=== PATIENT | female | born 1930 | race Caucasian/White ===

== ENCOUNTER 2019-05-15 14:33 | Inpatient (IN) | payer MEDICARE ==
[2019-05-15] MEDS ORDERED: NAPROXEN 250 MG TAB PO PRN (23:00)
[2019-05-16] MEDS: methylPREDNISolone SOD SUCCI 40 MG/ML 1 ML VIAL IV SCH ×4 (00:22→17:46)
[2019-05-16] MEDS: PRAVASTATIN SODIUM 40 MG TAB PO SCH ×2 (00:22→20:58)
[2019-05-16] MEDS: SERTRALINE 50 MG TAB PO SCH ×3 (00:22→20:58)
[2019-05-16] MEDS: CLOPIDOGREL 75 MG TAB PO SCH (08:03)
[2019-05-16] MEDS: ISOSORBIDE MONONITRATE ER 60 MG TAB.ER.24H PO SCH (08:03)
[2019-05-16] MEDS: LOSARTAN 50 MG TAB PO SCH (08:03)
[2019-05-16] MEDS: PANTOPRAZOLE 40 MG TABLET PO SCH (08:03)
[2019-05-16] MEDS: FENOFIBRATE 160 MG TAB PO SCH (08:03)
[2019-05-16] MEDS: AZITHROMYCIN 500 MG in SODIUM CHLORIDE 0.9% 250 ML IVPB SCH (08:03)
[2019-05-16] MEDS: amLODIPine 5 MG TAB PO SCH (08:03)
[2019-05-16] MEDS: IPRATROPIUM-ALBUTEROL 3 ML NEB INHALATION SCH ×5 (09:16→20:04)
[2019-05-16 09:57] LABS: Basophils # (A) 0.2 k/uL (0-0.2); Basophils % (A) 2 %; Eosinophils # (A) 0.1 k/uL (0-0.7); Eosinophils % (A) 1 %; Lymphocytes # (A) 0.8 k/uL (1.0-4.8); Lymphocytes % (A) 6 %; MCHC 31.7 g/dL (31.0-37.0); MCV 88.2 fL (80.0-100.0); Mean Platelet Volume 8.4; Monocytes # (A) 0.6 k/uL (0-1.0); Monocytes % (A) 4 %; Neutrophils # (A) 11.5 k/uL (1.3-7.7); Neutrophils % (A) 87 %; Platelet Count 300 k/uL (150-450); RBC 4.65 m/uL (3.80-5.40); RDW 13.2 % (11.5-15.5); WBC 13.2 k/uL (3.8-10.6)
[2019-05-16 10:13] LABS: ALT 20 U/L (4-34); AST 25 U/L (14-36); African American GFR (CKD) >90 (>60 ml/min/1.73 sqM); Albumin 2.9 g/dL (3.5-5.0); Alkaline Phosphatase 41 U/L (38-126); Anion Gap 5 mmol/L; Blood Urea Nitrogen 18 mg/dL (7-17); Calcium 9.2 mg/dL (8.4-10.2); Carbon Dioxide 35 mmol/L (22-30); Chloride 95 mmol/L (98-107); Glucose 154 mg/dL (74-99); Non-African American GFR(CKD) 82 (>60 ml/min/1.73 sqM); Potassium 4.5 mmol/L (3.5-5.1); Sodium 135 mmol/L (137-145); Total Bilirubin 0.7 mg/dL (0.2-1.3); Total Protein 5.2 g/dL (6.3-8.2)
--- NOTE | 2019-05-16 11:05 | XR ---
EXAMINATION TYPE: XR chest 1V portable DATE OF EXAM: 05/16/2019 COMPARISON: 02/08/2000 HISTORY: Pneumonia TECHNIQUE: Single frontal view of the chest is obtained. FINDINGS: Bibasilar consolidation signal changes are noted. Arthropathy shoulders. Elevated hemidiap hragm right. No overt failure. No pneumothorax. Diffuse osteopenia noted. IMPRESSION: Bibasilar consolidation correlate for atelectasis
--- NOTE | 2019-05-16 11:29 | P.CNPUL ---
History of Present Illness Consult date: 05/16/19 Requesting physician: Franklin Velasco Reason for consult: dyspnea, abnormal CXR/CT (Basilar consolidation/atelectasis) Chief complaint: Nausea, vomiting, diarrhea, abdominal pain History of present illness: This is a very pleasant 89-year-old female patient who is somewhat hard of hearing. She resides at [facility] in [place]. She follows with Dr. Webber as her primary care provider. She has a history of coronary artery disease, pulmonary embolism, hypertension, CVA, anxiety, GERD, congestive heart failure, dual-chamber permanent pacemaker implantation, she was treated with IV diuretics, ceftriaxone and azithromycin. osteoarthritis, hyperlipidemia she had initially presented to [facility] on 05/09/2019 with complaints of nausea vomiting and abdominal pain. She was found to have oxygen saturations in the 80s and was placed on nasal cannula. She was kept for observation for acute hypoxic respiratory failure, gastroenteritis. She had then developed suspicion for pneumonia and a CT angiogram of the chest showed a right lower lobe consolidation. She was slow to progress and subsequently transferred here 05/15/2019 to the general medical floor for further evaluation and treatment. Pro-calcitonin 0.08 within normal limits at [facility] labs. Lactic acid 1.0. No leukocytosis. ProBNP 3940. The patient is seen today in consultation on the regular medical floor. She is somewhat hard of hearing but answering questions appropriately. She denies any worsening shortness of breath, cough or congestion. She states previously she had yellow/green productive sputum. She did have a fever while at [facility]. Currently afebrile. Maintaining O2 satu rations in the low 90s on 2 L/m per nasal cannula. White count 13.2. Hemoglobin 13.0. Sodium 135. Creatinine 0.60. Bicarb 35. She is continued on bronchodilators, ceftriaxone and azithromycin, IV Solu-Medrol. Today's x-ray shows bibasilar consolidation/atelectasis. There is elevated right he midiaphragm. Review of Systems REVIEW OF SYSTEMS: CONSTITUTIONAL: Denies any recent significant weight loss or weight gain. EYES: Denies change in vision. EARS, NOSE, MOUTH, THROAT: Denies headaches, positive for hoarseness and sore throat. CARDIOVASCULAR: Denies chest pain, palpitations or syncopal episodes. RESPIRATORY: Positive for shortness of breath, cough, congestion no hemoptysis. GASTROINTESTINAL: Denies change in appetite, positive for abdominal pain GENITOURINARY: Denies hematuria, denies infections. MUSKULOSKELETAL: Denies pain, denies swelling. INTEGUMENTARY: Denies rash, denies eczema. NEUROLOGICAL: Denies recent memory loss, no recent seizure activity. PSYCHIATRIC: Positive for anxiety, denies depression. HEMATOLOGIC/LYMPHATIC: Denies anemia, denies enlarged lymph nodes. Past Medical History Past Medical History: Coronary Artery Disease (CAD), Heart Failure, CVA/TIA, GERD/Reflux, Hyperlipidemia, Hypertension, Osteoarthritis (OA), Pneumonia Additional Past Medical History / Comment(s): anxiety; alleric rhinitiss; angina; atherosclerotic heart disease; hypoxia; weakness; hypkalemia; pace maker History of Any Multi-Drug Resistant Organisms: None Reported Past Surgical History: Hernia Repair, Hysterectomy, Pacemaker Additional Past Surgical History / Comment(s): colonoscope, hysterectomy, cataracts, hernia, cardiac pacemaker Past Anesthesia/Blood Transfusion Reactions: No Reported Reaction Type of Cardiac Device: Permanent Pacemaker Device Placement Date:: 2015 Smoking Status: Never smoker - Past Family History Mother Additional Family Medical History / Comment(s): heart problems Father Family Medical History: Diabetes Mellitus Additional Family Medical History / Comment(s): heart problems Medications and Allergies Home Medications Medication Instructions Recorded Confirmed Type Clopidogrel [Plavix] 75 mg PO DAILY 05/15/19 05/15/19 History Fenofibrate 160 mg PO DAILY 05/15/19 05/15/19 History Isosorbide Mononitrate ER [Imdur] 60 mg PO DAILY 05/15/19 05/15/19 History Losartan Potassium [Cozaar] 100 mg PO DAILY 05/15/19 05/15/19 History Naproxen 500 mg PO BID PRN 05/15/19 05/15/19 History Omeprazole [PriLOSEC] 20 mg PO AC-BRKFST 05/15/19 05/15/19 History Pravastatin Sodium [Pravachol] 40 mg PO HS 05/15/19 05/15/19 History Sertraline [Zoloft] 50 mg PO DAILY 05/15/19 05/15/19 History traZODone HCL 50 mg PO HS PRN 05/15/19 05/15/19 History Acetaminophen [Tylenol] 650 mg PO BID 05/16/19 05/16/19 History Cetirizine HCl [Zyrtec] 10 mg PO DAILY 05/16/19 05/16/19 History Naproxen 500 mg PO BID PRN 05/16/19 05/16/19 History Allergies Allergy/AdvReac Type Severity Reaction Status Date / Time levofloxacin [From Levaquin] Allergy Unknown Verified 05/15/19 21:14 shellfish derived [Shellfish] Allergy Unknown Verified 05/15/19 21:14 Physical Exam Vitals: Vital Signs Temp Pulse Pulse Resp BP Pulse Ox 05/16/19 09:29 88 05/16/19 09:17 88 05/16/19 05:10 97.3 F L 88 22 168/88 93 L 05/16/19 00:24 177/88 05/15/19 21:00 97.2 F L 89 20 93 L Intake and Output 05/15/19 05/16/19 05/16/19 22:59 06:59 14:59 Intake Total 100 100 Balance 100 100 Intake: Oral 100 100 Other: Voiding Method Bedpan Diaper # Voids 2 Weight 74.096 kg GENERAL EXAM: Alert, hard of hearing, pleasant 89-year-old female patient, on 2 L comfortable in no apparent distress. HEAD: Normocephalic. EYES: Normal reaction of pupils, equal size. NOSE: Clear with pink turbinates. THROAT: No erythema or exudates. NECK: No masses, no JVD. CHEST: No chest wall deformity. LUNGS: Equal air entry with few crackles in the posterior bases. CVS: S1 and S2 normal with no audible murmur, regular rhythm. ABDOMEN: No hepatosplenomegaly, normal bowel sounds, no guarding or rigidity. SPINE: No scoliosis or deformity SKIN: No rashes CENTRAL NERVOUS SYSTEM: No focal deficits, tone is normal in all 4 extremities. EXTREMITIES: There is no peripheral edema. No clubbing, no cyanosis. Peripheral pulses are intact. Results - Laboratory Findings CBC and BMP: 05/16/19 09:20 05/16/19 09:20 Abnormal lab findings: Abnormal Labs 05/16/19 05/16/19 09:20 09:20 WBC 13.2 H Neutrophils # 11.5 H Lymphocytes # 0.8 L Sodium 135 L Chloride 95 L Carbon Dioxide 35 H BUN 18 H Glucose 154 H Total Protein 5.2 L Albumin 2.9 L - Diagnostic Findings Chest x-ray: image reviewed (Bibasilar consolidation/atelectasis, right hemidiaphragm elevation) Assessment and Plan Assessment: 1 Abdominal discomfort secondary to nausea, vomiting and diarrhea 2 Acute hypoxic respiratory failure secondary to a right lower lobe pneumonia per CT results at [facility] 3 Bibasilar consolidation/atelectasis, elevated right hemidiaphragm 4 Hypertension 5 Chronic diastolic congestive heart failure 6 Atherosclerotic heart disease 7 Sick sinus syndrome, status post permanent pacemaker implantation 8 History of CVA 9 Hyperlipidemia 10 Osteoarthritis 11 Anxiety 12 Gastroesophageal reflux disease Plan: The patient was seen and evaluated by Dr. Harman. Chest x-ray and labs reviewed. Records from [facility] reviewed. She is currently on bronchodilators, IV Solu-Medrol, ceftriaxone and azithromycin. We will continue to monitor and make further recommendations based on her clinical status. I, the cosigning physician, performed a history & physical examination of the patient. Lungs sounds crackles in the posterior bases. Maintaining good O2 saturations in the 90s on 2 L/m per nasal cannula. I discussed the assessment and plan of care with my nurse practitioner, Mague Goyal. I attest to the above note as dictated by her. Time with Patient: Greater than 30
[2019-05-16] MEDS ORDERED: IPRATROPIUM-ALBUTEROL 3 ML NEB INHALATION PRN (15:16)
[2019-05-16] MEDS ORDERED: HYDROcodone/APAP 5-325MG 1 EACH TAB PO PRN (15:16)
[2019-05-16] MEDS: FUROSEMIDE 10 MG/ML 4 ML VIAL IV SCH (16:35)
[2019-05-16] MEDS: PIPERACILLIN-TAZOBACTAM 3.375 GM in SODIUM CHLORIDE 0.9% 100 ML IVPB SCH (16:35)
[2019-05-16 17:46] LABS: Glucose,Whole Blood 184 mg/dL (75-99)
[2019-05-16] MEDS: INSULIN ASPART (NovoLOG) 100 UNIT/ML VIAL SQ SCH ×2 (17:47→20:59)
--- NOTE | 2019-05-16 18:57 | HP ---
HISTORY AND PHYSICAL DATE OF SERVICE: 05/16/2019 CHIEF COMPLAINTS: Shortness of breath and cough and sputum and pneumonia. HISTORY OF PRESENT ILLNESS: This 89-year-old woman with a past medical history of multiple medical problems, including history of CAD, CHF, CVA, TIA, GERD, hypertension, hyperlipidemia, history of DJD, history of pneumonia, history of anxiety, history of hernia repair, hysterectomy, pacemaker, being followed by Dr. Webber in the outpatient setting, was having increasing shortness of breath and sputum for the last several days. Patient also had abdominal symptoms. The patient was apparently admitted to [facility] and was treated for pneumonia. She was noted to have abdominal symptoms as well. CT angio elsewhere showed right lower lobe consolidation and no evidence of pulmonary embolism. Because of lack of improvement, the patient was directly transferred to [facility] from [facility] and the patient was admitted for further evaluation and treatment. There is no history of any fever, rigor or chills. No history of headache, loss of consciousness, seizures at this time. No history of chest pain or palpitations. The chest x-ray done today showed bibasilar consolidations. PAST MEDICAL HISTORY: 1. History of CAD, CHF; ejection fraction unknown. 2. CVA, TIA. 3. GERD. 4. Hypertension. 5. Hyperlipidemia. 6. History of DJD. HOME MEDICATIONS: 1. Naprosyn 500 mg b.i.d. p.r.n. 2. Zyrtec 10 mg p.o. daily. 3. Tylenol 650 p.o. b.i.d. 4. Zoloft 50 mg p.o. daily. 5. Trazodone 50 mg at bedtime p.r.n. 6. Pravachol 40 mg at bedtime. 7. Prilosec 20 mg b.i.d. 8. Cozaar 100 mg p.o. daily. 9. Imdur 60 mg p.o. daily. 10.Fenofibrate 160 mg p.o. daily. 11.Plavix 75 mg p.o. daily. ALLERGIES: LEVAQUIN AND SHELLFISH. FAMILY HISTORY: History of diabetes mellitus and heart problems in the family. SOCIAL HISTORY: No history of smoking. No history of alcohol. REVIEW OF SYSTEMS: ENT: Diminished hearing. Diminished vision. CARDIOVASCULAR SYSTEM: As mentioned earlier. RESPIRATORY SYSTEM: As mentioned earlier. GI: No nausea, vomiting. : No dysuria or retention. NERVOUS SYSTEM: No numbness, weakness. ALLERGY/IMMUNOLOGY: No asthma, hayfever. MUSCULOSKELETAL: As mentioned earlier. HEMATOLOGY/ONCOLOGY: No history of anemia. ENDOCRINE: No history of diabetes, hypothyroidism. CONSTITUTIONAL: As mentioned earlier. DERMATOLOGY: Negative. RHEUMATOLOGY: Negative. PSYCHIATRY: As mentioned earlier. PHYSICAL EXAMINATION: Patient is alert, oriented x3. Pulse is 98, blood pressure 137/73, respirations 16, temperature 97.7, pulse ox 94% on 2 L. HEENT: Conjunctivae normal. Oral mucosa moist. NECK: No jugular venous distention. No carotid bruit. No lymph node enlargement. CARDIOVASCULAR SYSTEM: S1, S2 muffled. RESPIRATORY SYSTEM: Breath sounds diminished at the bases. Bilateral scattered rhonchi and crackles. Expiratory wheezing also present. ABDOMEN: Soft, non-tender. No mass palpable. LEGS: No edema. No swelling. NERVOUS SYSTEM: Higher functions as mentioned earlier. Moves all 4 limbs. No focal motor or sensory deficit. LYMPHATICS: No lymph node palpable in neck, axillae or groin. SKIN: No ulcer, rash, bleeding. JOINTS: No active deforming arthropathy. LABS: WBC 13.2, hemoglobin 13. Sodium 135, potassium 4.5, and albumin is 2.9. Influenza is negative. ASSESSMENT: 1. Bilateral pneumonia, possibly Gram-negative, with acute hypoxic respiratory failure with failure of inpatient treatment. 2. Rule out congestive heart failure. 3. Increased white count. 4. Hyponatremia. 5. History of coronary artery disease. 6. History of congestive heart failure; ejection fraction unknown. 7. History of cerebrovascular accident, transient ischemic attack. 8. Gastroesophageal reflux disease. 9. Hypertension. 10.Hyperlipidemia. 11.History of degenerative joint disease. 12.History of pneumonia. 13.History of anxiety. 14.Allergic rhinitis. 15.History of hypoxia. 16.History of hypokalemia. 17.History of pacemaker. 18.History of hernia repair. 19.History of hysterectomy. 20.History of colonoscopy. 21.NO CODE, NO CPR, NO VENT. RECOMMENDATIONS AND DISCUSSION: In this 89-year-old woman who presented with multiple complex medical issues, we will monitor the patient closely, continue the current medications, continue with symptomatic treatment. Will initiate broad-spectrum IV antibiotics. I would use IV Zosyn at this time. Follow the cultures. I would also recommend a small dose of diuretics. Check BNP and 2D echo. Complete cardiac workup. Dr. Harman has been consulted. Resume the home medications and bronchodilators, IV steroids. Monitor blood sugars closely. DVT prophylaxis. Prognosis guarded because of multiple complex medical issues. Further recommendations to follow. A copy of this dictation is being forwarded to Dr. Webber, who is the primary physician. MMODL / IJN: [id number] /
[2019-05-16] MEDS: BUDESONIDE 1 MG/2 ML NEBU INHALATION SCH (20:04)
[2019-05-16 20:28] LABS: Glucose,Whole Blood 185 mg/dL (75-99)
[2019-05-16] MEDS: HEPARIN SODIUM,PORCINE 5,000 UNIT/ML 1 ML VIAL SQ SCH (20:58)
[2019-05-17] MEDS: PIPERACILLIN-TAZOBACTAM 3.375 GM in SODIUM CHLORIDE 0.9% 100 ML IVPB SCH ×4 (00:19→23:21)
[2019-05-17] MEDS: methylPREDNISolone SOD SUCCI 40 MG/ML 1 ML VIAL IV SCH ×5 (00:21→23:21)
[2019-05-17] MEDS: ALPRAZolam 0.25 MG TAB PO PRN ×2 (00:23→23:29)
[2019-05-17 07:38] LABS: Glucose,Whole Blood 131 mg/dL (75-99)
[2019-05-17] MEDS: INSULIN ASPART (NovoLOG) 100 UNIT/ML VIAL SQ SCH ×4 (07:41→21:27)
[2019-05-17] MEDS: amLODIPine 5 MG TAB PO SCH (07:55)
[2019-05-17] MEDS: HEPARIN SODIUM,PORCINE 5,000 UNIT/ML 1 ML VIAL SQ SCH ×2 (07:55→21:27)
[2019-05-17] MEDS: LOSARTAN 50 MG TAB PO SCH (07:55)
[2019-05-17] MEDS: FUROSEMIDE 10 MG/ML 4 ML VIAL IV SCH (07:55)
[2019-05-17] MEDS: ISOSORBIDE MONONITRATE ER 60 MG TAB.ER.24H PO SCH (07:55)
[2019-05-17] MEDS: PANTOPRAZOLE 40 MG TABLET PO SCH (07:55)
[2019-05-17] MEDS: CLOPIDOGREL 75 MG TAB PO SCH (07:55)
[2019-05-17] MEDS: FENOFIBRATE 160 MG TAB PO SCH (07:55)
[2019-05-17] MEDS: AZITHROMYCIN 500 MG in SODIUM CHLORIDE 0.9% 250 ML IVPB SCH (07:56)
[2019-05-17 08:36] LABS: Appearance,Urine Clear (Clear); Bilirubin,Urine Negative (Negative); Blood,Urine Negative (Negative); Color,Urine Yellow; Glucose,Urine (UA) Negative (Negative); Ketones,Urine Negative (Negative); Leukocyte Esterase,Urine Negative (Negative); Nitrite,Urine Negative (Negative); PH, Urine 6.5 (5.0-8.0); Protein,Urine Negative (Negative); Specific Gravity,Urine 1.019 (1.001-1.035); Urobilinogen,Urine <2.0 mg/dL (<2.0)
[2019-05-17 08:40] LABS: African American GFR (CKD) >90 (>60 ml/min/1.73 sqM); Anion Gap 10 mmol/L; Blood Urea Nitrogen 27 mg/dL (7-17); Calcium 9.3 mg/dL (8.4-10.2); Carbon Dioxide 33 mmol/L (22-30); Chloride 91 mmol/L (98-107); Glucose 146 mg/dL (74-99); Non-African American GFR(CKD) 81 (>60 ml/min/1.73 sqM); Sodium 134 mmol/L (137-145)
[2019-05-17] MEDS: IPRATROPIUM-ALBUTEROL 3 ML NEB INHALATION SCH ×4 (08:53→20:24)
[2019-05-17] MEDS: BUDESONIDE 1 MG/2 ML NEBU INHALATION SCH ×2 (08:53→20:24)
[2019-05-17 09:09] LABS: Potassium 4.4 mmol/L (3.5-5.1)
[2019-05-17 09:17] LABS: Basophils # (A) 0.2 k/uL (0-0.2); Basophils % (A) 1 %; Eosinophils % (A) 0 %; HCT 45.9 % (34.0-46.0); Lymphocytes # (A) 1.6 k/uL (1.0-4.8); Lymphocytes % (A) 9 %; MCHC 32.7 g/dL (31.0-37.0); MCV 85.7 fL (80.0-100.0); Mean Platelet Volume 9.2; Monocytes # (A) 0.8 k/uL (0-1.0); Monocytes % (A) 5 %; Neutrophils # (A) 15.8 k/uL (1.3-7.7); Neutrophils % (A) 85 %; Platelet Count 257 k/uL (150-450); RBC 5.35 m/uL (3.80-5.40); WBC 18.7 k/uL (3.8-10.6)
[2019-05-17 12:08] LABS: Glucose,Whole Blood 161 mg/dL (75-99)
--- NOTE | 2019-05-17 12:36 | P.PN ---
Subjective Progress Note Date: 05/17/19 Principal diagnosis: Acute hypoxic respiratory failure secondary to right lower lobe pneumonia. This is a very pleasant 89-year-old female patient who is somewhat hard of hearing. She resides at [facility] in [place]. She follows with Dr. Webber as her primary care provider. She has a history of coronary artery disease, pulmonary embolism, hypertension, CVA, anxiety, GERD, congestive heart failure, dual-chamber permanent pacemaker implantation, she was treated with IV diuretics, ceftriaxone and azithromycin. osteoarthritis, hyperlipidemia she had initially presented to [facility] on 05/09/2019 with complaints of nausea vomiting and abdominal pain. She was found to have oxygen saturations in the 80s and was placed on nasal cannula. She was kept for observation for acute hypoxic respiratory failure, gastroenteritis. She had then developed suspicion for pneumonia and a CT angiogram of the chest showed a right lower lobe consolidation. She was slow to progress and subsequently transferred here 05/15/2019 to the general medical floor for further evaluation and treatment. Pro-calcitonin 0.08 within normal limits at [facility] labs. Lactic acid 1.0. No leukocytosis. ProBNP 3940. The patient is seen today in consultation on the regular medical floor. She is somewhat hard of hearing but answering questions appropriately. She denies any worsening shortness of breath, cough or congestion. She states previously she had yellow/green productive sputum. She did have a fever while at [facility]. Currently afebrile. Maintaining O2 s aturations in the low 90s on 2 L/m per nasal cannula. White count 13.2. Hemoglobin 13.0. Sodium 135. Creatinine 0.60. Bicarb 35. She is continued on bronchodilators, ceftriaxone and azithromycin, IV Solu-Medrol. Today's x-ray shows bibasilar consolidation/atelectasis. There is elevated right hemidiaphragm. The patient is seen today in 05/17/2019 in follow-up on the regular medical floor. She is currently up walking with assistance and physical therapy. She is awake and alert in no acute distress. She is breathing a bit easier today compared to yesterday. Still with some dyspnea on exertion. Maintaining good O2 saturations in the mid 90s on 2 L/m per nasal cannula. She is afebrile. Urine culture pending. White count 18.7. Hemoglobin 15.0. Sodium 134. Potassium 4.4. Bicarb 33. Creatinine 0.64. She is continued on Zosyn and azithromycin., Currently on IV Solu-Medrol bronchodilators and continued on IV diuretics. Chest x-ray shows bibasilar consolidation/atelectasis. Objective - Vital Signs Vital signs: Vital Signs Temp 97.5 F L 05/17/19 04:50 Pulse 99 05/17/19 12:09 Resp 20 05/17/19 04:50 BP 157/82 05/17/19 04:50 Pulse Ox 96 05/17/19 08:54 Intake & Output 05/16/19 05/17/19 05/17/19 18:59 06:59 18:59 Intake Total 300 Balance 300 Intake: Oral 300 Other: Voiding Method Bedpan Bedpan Bedside Commode Incontinent Incontinent Incontinent # Voids 2 2 # Bowel Movements 1 - Exam GENERAL EXAM: Alert, hard of hearing, pleasant 89-year-old female patient, on 2 L comfortable in no apparent distress. HEAD: Normocephalic. EYES: Normal reaction of pupils, equal size. NOSE: Clear with pink turbinates. THROAT: No erythema or exudates. NECK: No masses, no JVD. CHEST: No chest wall deformity. LUNGS: Equal air entry with few crackles in the posterior bases. CVS: S1 and S2 normal with no audible murmur, regular rhythm. ABDOMEN: No hepatosplenomegaly, normal bowel sounds, no guarding or rigidity. SPINE: No scoliosis or deformity SKIN: No rashes CENTRAL NERVOUS SYSTEM: No focal deficits, tone is normal in all 4 extremities. EXTREMITIES: There is no peripheral edema. No clubbing, no cyanosis. Peripheral pulses are intact. - Labs CBC & Chem 7: 05/17/19 07:24 05/17/19 07:24 Labs: Abnormal Lab Results - Last 24 Hours (Table) 05/16/19 05/16/19 05/17/19 Range/Units 17:44 20:15 07:24 WBC 18.7 H (3.8-10.6) k/uL Neutrophils # 15.8 H (1.3-7.7) k/uL Sodium (137-145) mmol/L Chloride (98-107) mmol/L Carbon Dioxide (22-30) mmol/L BUN (7-17) mg/dL Glucose (74-99) mg/dL POC Glucose (mg/dL) 184 H 185 H (75-99) mg/dL 05/17/19 05/17/19 05/17/19 Range/Units 07:24 07:34 12:07 WBC (3.8-10.6) k/uL Neutrophils # (1.3-7.7) k/uL Sodium 134 L (137-145) mmol/L Chloride 91 L (98-107) mmol/L Carbon Dioxide 33 H (22-30) mmol/L BUN 27 H (7-17) mg/dL Glucose 146 H (74-99) mg/dL POC Glucose (mg/dL) 131 H 161 H (75-99) mg/dL Microbiology - Last 24 Hours (Table) 05/17/19 07:23 Urine Culture - Preliminary Urine,Clean Catch Assessment and Plan Assessment: 1 Abdominal discomfort secondary to nausea, vomiting and diarrhea 2 Acute hypoxic respiratory failure secondary to a right lower lobe pneumonia per CT results at [facility] 3 Bibasilar consolidation/atelectasis, elevated right hemidiaphragm 4 Hypertension 5 Chronic diastolic congestive heart failure 6 Atherosclerotic heart disease 7 Sick sinus syndrome, status post permanent pacemaker implantation 8 History of CVA 9 Hyperlipidemia 10 Osteoarthritis 11 Anxiety 12 Gastroesophageal reflux disease Plan: The patient was seen and evaluated by Dr. Harman. Computed tomography scan from [facility] reviewed. Chest x-ray reviewed. We'll continue with the current treatment plan. She is currently on bronchodilators, IV Solu-Medrol, ceftriaxone and azithromycin. Increase her activity as tolerated. We will continue to monitor and make further recommendations based on her clinical status. I, the cosigning physician, performed a history & physical examination of the patient. Lungs sounds crackles in the posterior bases. Maintaining good O2 saturations in the 90s on 2 L/m per nasal cannula. I discussed the assessment and plan of care with my nurse practitioner, Mague Goyal. I attest to the above note as dictated by her.
--- NOTE | 2019-05-17 12:48 | ECHOF ---
Referral Reason:chf MEASUREMENTS -------- HEIGHT: 165.1 cm WEIGHT: 74.8 kg BP: RVIDd: 3.1 cm (< 3.3) IVSd: 1.4 cm (0.6 - 1.1) LVIDd: 3.6 cm (3.9 - 5.3) LVPWd: 1.6 cm (0.6 - 1.1) IVSs: 1.5 cm LVIDs: 2.9 cm LVPWs: 1.7 cm LA Diam: 3.7 cm (2.7 - 3.8) MV EXCURSION: 13.275 mm (> 18.000) MV EF SLOPE: 69 mm/s (70 - 150) EPSS: 0.3 cm MV E Mark: 0.70 m/s MV DecT: 216 ms MV A Mark: 0.96 m/s MV E/A Ratio: 0.73 AV maxP.14 mmHg AV meanP.44 mmHg FINDINGS -------- Paced rhythm. This was a techncally difficult study with suboptimal views, , Definity utilized for enhancement of i mages. The left ventricular size is normal. There is mild concentric left ventricular hypertrophy. Overa ll left ventricular systolic function is mildly impaired with, an EF between 45 - 50 %. Basal infer ior LV wall motion is hypokinetic. The right ventricle is normal in size. The left atrium is moderately dilated. The right atrial size is normal. xx ml of Lumason was utilized for enhancement of images. The aortic valve was not well visualized. There is moderate aortic stenosis present. Peak/mean gr adient across the Aortic Valve is 32.14mmHg / 16.44mmHg. Mild mitral annular calcification present. Mild mitral regurgitation is present. Mild tricuspid regurgitation present. Right ventricular systolic pressure is normal at < 35 mmHg. There is mild pulmonary hypertension. There is no pulmonic regurgitation present. The aortic root size is normal. Echo free space indicative of a pericardial fat pad. CONCLUSIONS -------- 1. Paced rhythm. 2. This was a techncally difficult study with suboptimal views, , Definity utilized for enhancement o f images. 3. The left ventricular size is normal. 4. There is mild concentric left ventricular hypertrophy. 5. Overall left ventricular systolic function is mildly impaired with, an EF between 45 - 50 %. 6. Basal inferior LV wall motion is hypokinetic. 7. The right ventricle is normal in size. 8. The left atrium is moderately dilated. 9. The right atrial size is normal. 10. xx ml of Lumason was utilized for enhancement of images. 11. The aortic valve was not well visualized. 12. There is moderate aortic stenosis present. 13. Peak/mean gradient across the Aortic Valve is 32.14mmHg / 16.44mmHg. 14. Mild mitral annular calcification present. 15. Mild mitral regurgitation is present. 16. Mild tricuspid regurgitation present. 17. Right ventricular systolic pressure is normal at < 35 mmHg. 18. There is mild pulmonary hypertension. 19. There is no pulmonic regurgitation present. 20. The aortic root size is normal. 21. Echo free space indicative of a pericardial fat pad. TURF GROWER: Debbie Brown RDCS
[2019-05-17 16:56] LABS: Glucose,Whole Blood 155 mg/dL (75-99)
[2019-05-17] MEDS: TRIMETHOBENZAMIDE 100 MG/ML 2 ML VIAL IM PRN (19:34)
[2019-05-17 20:35] LABS: Glucose,Whole Blood 141 mg/dL (75-99)
--- NOTE | 2019-05-17 20:39 | PN ---
PROGRESS NOTE DATE OF SERVICE: 05/17/2019 This 89-year-old woman who was admitted with bilateral pneumonia, possibly Gram- negative, with acute hypoxic respiratory failure is being closely monitored at this time. No chest pain, palpitations. The patient had failure of outpatient treatment. The patient was previously being treated at [facility] for quite some time. The patient also had abdominal symptoms, which are rather improving at this time. The chest x-ray which was done in [place], which was personally reviewed by me, showed possible bibasilar consolidation. Past medical history reviewed. REVIEW OF SYSTEMS: CARDIOVASCULAR SYSTEM: As mentioned earlier. RESPIRATORY SYSTEM: As mentioned earlier. GI: As mentioned earlier. : No dysuria or retention. NERVOUS SYSTEM: No numbness, weakness. CURRENT MEDICATIONS: Current medications reviewed and include: Tylenol p.r.n. [place] 5 mg q.6 p.r.n. DuoNeb q.i.d. and p.r.n. Xanax 0.25 t.i.d. Norvasc 5 mg p.o. daily. Zithromax 500 mg daily. Pulmicort 1 mg b.i.d. Plavix. Lofibra. Lasix. Heparin. NovoLog. Imdur. Cozaar. Solu-Medrol 40 IV q.6. Protonix. Zosyn 3.375 IV q.8. Zoloft. Desyrel. PHYSICAL EXAMINATION: Patient is alert, oriented x3. Pulse is 101, blood pressure 121/83, respirations 18, temperature 98.4, pulse ox 97% on 2 L. HEENT: Conjunctivae normal. NECK: No jugular venous distention. CARDIOVASCULAR SYSTEM: S1, S2 muffled. RESPIRATORY SYSTEM: Breath sounds diminished at the bases. Bilateral scattered rhonchi and crackles, especially in the bases. ABDOMEN: Soft, nontender. LEGS: No edema. No swelling. NERVOUS SYSTEM: No focal deficit. LABORATORY DATA: WBC 18.7, hemoglobin 15. Sodium 134. Accu-Cheks 131, 161. ASSESSMENT: 1. Bilateral pneumonia, possibly Gram-negative, right more than left, with acute hypoxic respiratory failure with failure of outpatient treatment. 2. Rule out congestive heart failure. 3. Increased white count. 4. Nausea, vomiting and diarrhea; possible acute gastroenteritis. 5. Hyponatremia. 6. History of coronary artery disease. 7. History of congestive heart failure; ejection fraction unknown. 8. History of cerebrovascular accident, transient ischemic attack. 9. Gastroesophageal reflux disease. 10.Hypertension. 11.Hyperlipidemia. 12.History of degenerative joint disease. 13.History of pneumonia. 14.History of anxiety. 15.History of allergic rhinitis. 16.History of hypoxemia. 17.History of hypokalemia. 18.History of pacemaker. 19.History of hernia repair. 20.History of hysterectomy. 21.History of colonoscopy. 22.NO CODE, NO CPR, NO VENT. RECOMMENDATIONS AND DISCUSSION: I recommend to continue current medications, continue with symptomatic treatment. Continue with broad-spectrum IV antibiotics. Continue with the bronchodilators. Continue with the rest of the medications. Otherwise, increase ambulation. PT/OT evaluation. Consider possible ECF rehab. Guarded prognosis because of multiple complex medical issues. Further recommendations to follow. Influenza is negative. MMODL / IJN: [id number] /
[2019-05-17] MEDS: PRAVASTATIN SODIUM 40 MG TAB PO SCH (21:27)
[2019-05-17] MEDS: SERTRALINE 50 MG TAB PO SCH (21:27)
[2019-05-17] MEDS: ACETAMINOPHEN TAB 500 MG TAB PO PRN (23:22)
[2019-05-18] MEDS: traZODone HCL 50 MG TAB PO PRN ×2 (02:48→21:04)
[2019-05-18] MEDS: ACETAMINOPHEN TAB 500 MG TAB PO PRN (05:24)
[2019-05-18] MEDS: TRIMETHOBENZAMIDE 100 MG/ML 2 ML VIAL IM PRN (05:28)
[2019-05-18] MEDS: methylPREDNISolone SOD SUCCI 40 MG/ML 1 ML VIAL IV SCH ×3 (05:28→17:33)
[2019-05-18] MEDS: IPRATROPIUM-ALBUTEROL 3 ML NEB INHALATION SCH ×4 (07:14→21:10)
[2019-05-18] MEDS: BUDESONIDE 1 MG/2 ML NEBU INHALATION SCH ×2 (07:14→21:10)
[2019-05-18 07:15] LABS: Glucose,Whole Blood 133 mg/dL (75-99)
[2019-05-18 09:34] LABS: Basophils # (A) 0.2 k/uL (0-0.2); Basophils % (A) 1 %; Eosinophils % (A) 0 %; HCT 44.5 % (34.0-46.0); Hypochromasia Slight; Lymphocytes # (A) 0.7 k/uL (1.0-4.8); Lymphocytes % (A) 4 %; MCH 28.1 pg (25.0-35.0); MCHC 31.5 g/dL (31.0-37.0); MCV 89.1 fL (80.0-100.0); Mean Platelet Volume 8.2; Monocytes # (A) 0.7 k/uL (0-1.0); Monocytes % (A) 4 %; Neutrophils # (A) 18.2 k/uL (1.3-7.7); Neutrophils % (A) 91 %; Platelet Count 219 k/uL (150-450); RDW 13.5 % (11.5-15.5); WBC 19.9 k/uL (3.8-10.6)
[2019-05-18 09:37] LABS: African American GFR (CKD) >90 (>60 ml/min/1.73 sqM); Anion Gap 6 mmol/L; Blood Urea Nitrogen 31 mg/dL (7-17); Calcium 8.6 mg/dL (8.4-10.2); Carbon Dioxide 34 mmol/L (22-30); Chloride 90 mmol/L (98-107); Glucose 143 mg/dL (74-99); Non-African American GFR(CKD) 83 (>60 ml/min/1.73 sqM); Potassium 3.9 mmol/L (3.5-5.1); Sodium 130 mmol/L (137-145)
[2019-05-18] MEDS: INSULIN ASPART (NovoLOG) 100 UNIT/ML VIAL SQ SCH ×4 (09:43→21:36)
[2019-05-18] MEDS: ISOSORBIDE MONONITRATE ER 60 MG TAB.ER.24H PO SCH (09:56)
[2019-05-18] MEDS: LOSARTAN 50 MG TAB PO SCH (09:56)
[2019-05-18] MEDS: PANTOPRAZOLE 40 MG TABLET PO SCH (09:56)
[2019-05-18] MEDS: HEPARIN SODIUM,PORCINE 5,000 UNIT/ML 1 ML VIAL SQ SCH ×2 (09:57→21:03)
[2019-05-18] MEDS: amLODIPine 5 MG TAB PO SCH (09:57)
[2019-05-18] MEDS: CLOPIDOGREL 75 MG TAB PO SCH (09:57)
[2019-05-18] MEDS: FENOFIBRATE 160 MG TAB PO SCH (09:57)
[2019-05-18] MEDS: PIPERACILLIN-TAZOBACTAM 3.375 GM in SODIUM CHLORIDE 0.9% 100 ML IVPB SCH ×2 (09:57→15:58)
[2019-05-18] MEDS: FUROSEMIDE 10 MG/ML 4 ML VIAL IV SCH (09:57)
[2019-05-18] MEDS ORDERED: diphenhydrAMINE 25 MG CAP PO PRN (10:02)
[2019-05-18] MEDS ORDERED: predniSONE 50 MG TAB PO PRN (10:03)
[2019-05-18] MEDS ORDERED: FAMOTIDINE 20 MG/2 ML VIAL IV PRN (10:20)
[2019-05-18 11:47] LABS: Glucose,Whole Blood 153 mg/dL (75-99)
--- NOTE | 2019-05-18 12:06 | P.PN ---
Subjective Progress Note Date: 05/18/19 This is a very pleasant 89-year-old female patient who is somewhat hard of hearing. She resides at [facility] in [place]. She follows with Dr. Webber as her primary care provider. She has a history of coronary artery disease, pulmonary embolism, hypertension, CVA, anxiety, GERD, congestive heart failure, dual-chamber permanent pacemaker implantation, she was treated with IV diuretics, ceftriaxone and azithromycin. osteoarthritis, hyperlipidemia she had initially presented to [facility] on 05/09/2019 with complaints of nausea vomiting and abdominal pain. She was found to have oxygen saturations in the 80s and was placed on nasal cannula. She was kept for observation for acute hypoxic respiratory failure, gastroenteritis. She had then developed suspicion for pneumonia and a CT angiogram of the chest showed a right lower lobe consolidation. She was slow to progress and subsequently transferred here 05/15/2019 to the general medical floor for further evaluation and treatment. Pro-calcitonin 0.08 within normal limits at [place] labs. Lactic acid 1.0. No leukocytosis. ProBNP 3940. The patient is seen today in consultation on the regular medical floor. She is somewhat hard of hearing but answering questions appropriately. She denies any worsening shortness of breath, cough or congestion. She states previously she had yellow/green productive sputum. She did have a fever while at [place]. Currently afebrile. Maintaining O2 saturations in the low 90s on 2 L/m per nasal cannula. White count 13.2. Hemoglobin 13.0. Sodium 135. Creatinine 0.60. Bicarb 35. She is continued on bronchodilators, ceftriaxone and azithromycin, IV Solu-Medrol. Today's x-ray shows bibasilar consolidation/atelectasis. There is elevated right hemidiaphragm. The patient is seen today in 05/17/2019 in follow-up on the regular medical floor. She is currently up walking with assistance and physical therapy. She is awake and alert in no acute distress. She is breathing a bit easier today compared to yesterday. Still with some dyspnea on exertion. Maintaining good O2 saturations in the mid 90s on 2 L/m per nasal cannula. She is afebrile. Urine culture pending. White count 18.7. Hemoglobin 15.0. Sodium 134. Potassium 4.4. Bicarb 33. Creatinine 0.64. She is continued on Zosyn and azithromycin., Currently on IV Solu-Medrol bronchodilators and continued on IV diuretics. Chest x-ray shows bibasilar consolidation/atelectasis. On 05/18/2019 she has no respiratory difficulties. She is complaining of some vague diffuse abdominal pain and it's been going on for quite some time since admission initiated to [facility] and later on to [place]. She had some limited right lower lobe infiltration and elevation of right hemidiaphragm. She is on room air oxygen. He is on antibiotics with IV Zosyn and Zithromax.. She is going to have a CAT scan of the abdomen today. LFTs have been within normal including AST, ALT, alkaline phosphatase . Normal bilirubin. She did have some limited diarrhea earlier none for now. Objective - Vital Signs Vital signs: Vital Signs Temp 98.0 F 05/18/19 05:36 Pulse 96 05/18/19 11:16 Resp 22 05/18/19 05:36 BP 169/85 05/18/19 05:36 Pulse Ox 96 05/18/19 07:16 Intake & Output 05/17/19 05/18/19 05/18/19 18:59 06:59 18:59 Other: Voiding Method Bedside Commode Diaper Diaper Incontinent Incontinent Incontinent # Voids 3 2 # Bowel Movements 1 - Exam GENERAL EXAM: Alert, hard of hearing, pleasant 89-year-old female patient, on 2 L comfortable in no apparent distress. HEAD: Normocephalic. EYES: Normal reaction of pupils, equal size. NOSE: Clear with pink turbinates. THROAT: No erythema or exudates. NECK: No masses, no JVD. CHEST: No chest wall deformity. LUNGS: Equal air entry with few crackles in the posterior bases. CVS: S1 and S2 normal with no audible murmur, regular rhythm. ABDOMEN: No hepatosplenomegaly, normal bowel sounds, no guarding or rigidity. SPINE: No scoliosis or deformity SKIN: No rashes CENTRAL NERVOUS SYSTEM: No focal deficits, tone is normal in all 4 extremities. EXTREMITIES: There is no peripheral edema. No clubbing, no cyanosis. Peripheral pulses are intact. - Labs CBC & Chem 7: 05/18/19 08:51 05/18/19 08:51 Labs: Abnormal Lab Results - Last 24 Hours (Table) 05/17/19 05/17/19 05/17/19 Range/Units 12:07 16:54 20:33 WBC (3.8-10.6) k/uL Neutrophils # (1.3-7.7) k/uL Lymphocytes # (1.0-4.8) k/uL Sodium (137-145) mmol/L Chloride (98-107) mmol/L Carbon Dioxide (22-30) mmol/L BUN (7-17) mg/dL Glucose (74-99) mg/dL POC Glucose (mg/dL) 161 H 155 H 141 H (75-99) mg/dL 05/18/19 05/18/19 05/18/19 Range/Units 07:13 08:51 08:51 WBC 19.9 H (3.8-10.6) k/uL Neutrophils # 18.2 H (1.3-7.7) k/uL Lymphocytes # 0.7 L (1.0-4.8) k/uL Sodium 130 L (137-145) mmol/L Chloride 90 L (98-107) mmol/L Carbon Dioxide 34 H (22-30) mmol/L BUN 31 H (7-17) mg/dL Glucose 143 H (74-99) mg/dL POC Glucose (mg/dL) 133 H (75-99) mg/dL 05/18/19 Range/Units 11:45 WBC (3.8-10.6) k/uL Neutrophils # (1.3-7.7) k/uL Lymphocytes # (1.0-4.8) k/uL Sodium (137-145) mmol/L Chloride (98-107) mmol/L Carbon Dioxide (22-30) mmol/L BUN (7-17) mg/dL Glucose (74-99) mg/dL POC Glucose (mg/dL) 153 H (75-99) mg/dL Microbiology - Last 24 Hours (Table) 05/17/19 07:23 Urine Culture - Final Urine,Clean Catch 05/16/19 15:54 Blood Culture - Preliminary Blood No Growth after 24 hours Assessment and Plan Plan: 1 Abdominal discomfort secondary to nausea, vomiting and diarrhea. The patient's diarrhea has subsided. Nevertheless she is still having some nausea and vague abdominal discomfort and she is going to undergo a CAT scan of the of the abdomen today along with a CAT scan of the pelvis. 2 Acute hypoxic respiratory failure secondary to a right lower lobe pneumonia per CT results at [facility] on Zosyn and Zithromax 3 Bibasilar consolidation/atelectasis, elevated right hemidiaphragm 4 Hypertension 5 Chronic diastolic congestive heart failure 6 Atherosclerotic heart disease 7 Sick sinus syndrome, status post permanent pacemaker implantation 8 History of CVA 9 Hyperlipidemia 10 Osteoarthritis 11 Anxiety 12 Gastroesophageal reflux disease Plan Stable pulmonary status Stool for C. diff should she develop any diarrhea CAT scan of the abdomen and pelvis We'll follow
[2019-05-18] MEDS: AZITHROMYCIN 500 MG in SODIUM CHLORIDE 0.9% 250 ML IVPB SCH (12:13)
[2019-05-18] MEDS: AZITHROMYCIN 500 MG TAB PO SCH (12:19)
[2019-05-18] MEDS: BARIUM SULFATE 450 ML ORAL.SUSP BOTTLE PO PRN ×3 (12:21→15:58)
[2019-05-18] MEDS: PANTOPRAZOLE 40 MG/10 ML VIAL IVP SCH ×2 (15:52→21:03)
[2019-05-18 17:07] LABS: Glucose,Whole Blood 144 mg/dL (75-99)
--- NOTE | 2019-05-18 20:14 | PN ---
PROGRESS NOTE DATE OF SERVICE: 05/18/2019 This 89-year-old woman who was admitted with bilateral pneumonia with possibly gram- negative right more than the left with acute hypoxic respiratory failure with failure of outpatient treatment is being closely monitored at this time. Last night, the patient had abdominal pain, nausea, vomiting. The patient initially had similar symptoms before presenting to [facility] with pneumonia. CT scan of the abdomen and pelvis has been requested. Patient being closely monitored at this time. PAST MEDICAL HISTORY: Reviewed. REVIEW OF SYSTEMS: CARDIOVASCULAR: No angina or palpitations. RESPIRATORY: As mentioned earlier. GI: As mentioned earlier. : No dysuria. CENTRAL NERVOUS SYSTEM: No numbness or weakness. CURRENT MEDICATIONS: Current medications are reviewed and include: 1. Tylenol 500 mg q.6h. 2. [place] 5 mg q6h p.r.n. 3. DuoNeb q.i.d. and p.r.n. 4. Xanax 0.2 t.i.d. 5. Norvasc 5 mg. 6. Zithromax 500 mg p.o. daily. 7. Barium sulfate. 8. Pulmicort 1 mg b.i.d. 9. Plavix. 10.Benadryl. 11.Imdur. 12.Pepcid 20 mg. 13.Lofibra. 14.Lasix. 15.Heparin. 16.Imdur. 17.Cozaar. 18.Solu-Medrol. 19.Naprosyn. 20.Zosyn. 21.Zoloft. 22.Desyrel. 23.Tigan. 24.Doses reviewed. PHYSICAL EXAM: Patient is alert, oriented x3. Pulse is 102. Blood pressure 112/74, respirations 16, temperature 97.2, pulse ox 91 percent on 2 L. HEENT: Conjunctivae normal. NECK: No JVD. CARDIOVASCULAR: S1, S2 muffled. RESPIRATIONS: Breath sounds diminished in the bases. Scattered rhonchi and wheezes. ABDOMEN: Soft. Mild diffuse discomfort to palpation. LEGS are no edema. No swelling. LABS: LFTs are noted. Otherwise, sodium 135 and 130. WBC 19.9. ASSESSMENT: 1. Bilateral pneumonia possibly gram-negative, right more the left with acute hypoxic respiratory failure of outpatient, present on admission. 2. Congestive heart failure unlikely. 3. Increased WBC. 4. Nausea, vomiting and diarrhea, possible acute gastroenteritis rule out peptic ulcer disease. 5. Hyponatremia. 6. History of coronary artery disease. 7. History of congestive heart failure, ejection fraction unknown. 8. History of cerebrovascular accident, transient ischemic attack. 9. Gastroesophageal reflux disease. 10.Hypertension. 11.History of hyperlipidemia. 12.History of degenerative joint disease. 13.History of pneumonia. 14.History of anxiety. 15.History of allergic rhinitis. 16.History of hypoxemia. 17.Hypokalemia. 18.History of pacemaker. 19.History of hernia repair. 20.History of hysterectomy. 21.History of colonoscopy. 22.NO CODE, NO CPR, NO VENT. RECOMMENDATIONS AND DISCUSSION: In this 89-year-old woman who presented with multiple complex medical issues, we will monitor the patient closely, continue the current medications, management and symptomatic treatment. Otherwise, at this time, I recommend continue with empiric antibiotics. Closely follow with Dr. Harman. Otherwise WBC still elevated. We will continue to monitor. CT scan of the abdomen and pelvis. Further recommendations to follow. Prognosis guarded. MMODL / IJN: [id number] /
[2019-05-18 21:02] LABS: Glucose,Whole Blood 164 mg/dL (75-99)
[2019-05-18] MEDS: PRAVASTATIN SODIUM 40 MG TAB PO SCH (21:04)
[2019-05-18] MEDS: ALPRAZolam 0.25 MG TAB PO PRN (21:04)
[2019-05-18] MEDS: SERTRALINE 50 MG TAB PO SCH (21:04)
--- NOTE | 2019-05-18 22:28 | CT ---
EXAMINATION TYPE: CT abdomen pelvis w con DATE OF EXAM: 05/18/2019 COMPARISON: October 12, 2010 HISTORY: Abdominal pain CT DLP: mGycm Automated exposure control for dose reduction was used. CONTRAST: Performed , patient injected with mL of . The contrast was Isovue 100 mL. TECHNIQUE: Multiple axial sections were obtained from the diaphragm to the floor the pelvis with oral and intrav enous contrast. FINDINGS: There is partial visualization of a 2 cm cavitating lesion right lower lobe. There is patchy infiltra te and atelectasis right lower lobe. Heart size is normal. There is mild pleural thickening right sabina g base. Liver appears intact. Gallbladder shows no focal defect. Spleen is intact. There is no evidence of a pancreatic mass. There is no adrenal mass. There is small hiatal hernia. There is extensive atherosclerotic vascular calcification. There is no adrenal mass. Kidneys show satisfactory contrast opacification. There is no hydronephrosi s. There is 1 cm cortical cyst upper pole right kidney. Ureters are not dilated. There is no retroper itoneal adenopathy. There is right side or midline ventral hernia or umbilical hernia that contains f at. There is no free fluid in the pelvis. Bladder distends smoothly. There is no inguinal hernia. There i s no evidence of a pelvic mass. There is no ascites or free air. Appendix is not definitely seen. The re is no sign of thickened appendix. There is increased density in the posterior cecum that is probably some fecal material layering with air. I see no definite intestinal wall thickening. There are spondylotic changes in the lumbar spine. There is 25% compression fracture of L1 vertebra t hat appears old. Bony pelvis is intact. IMPRESSION: There is lower lobe pulmonary infiltrates and atelectasis with cavitating lesion right lower lobe. Th is could be an abscess or necrotic tumor. This is a change compared to old CT scan. There is a mild compression fracture of L1 that is a change compared to old exam. Fracture is probabl y old. Cardiomegaly. No acute abnormality within the abdomen and pelvis. Atherosclerotic vascular disease.
[2019-05-19] MEDS: PIPERACILLIN-TAZOBACTAM 3.375 GM in SODIUM CHLORIDE 0.9% 100 ML IVPB SCH ×3 (01:16→16:29)
[2019-05-19] MEDS: methylPREDNISolone SOD SUCCI 40 MG/ML 1 ML VIAL IV SCH ×4 (01:16→17:51)
[2019-05-19] MEDS: IPRATROPIUM-ALBUTEROL 3 ML NEB INHALATION SCH ×4 (06:49→20:16)
[2019-05-19] MEDS: BUDESONIDE 1 MG/2 ML NEBU INHALATION SCH ×2 (06:49→20:16)
[2019-05-19 07:25] LABS: Glucose,Whole Blood 122 mg/dL (75-99)
[2019-05-19] MEDS: INSULIN ASPART (NovoLOG) 100 UNIT/ML VIAL SQ SCH ×4 (07:40→21:12)
[2019-05-19] MEDS: amLODIPine 5 MG TAB PO SCH (08:46)
[2019-05-19] MEDS: LOSARTAN 50 MG TAB PO SCH (08:46)
[2019-05-19] MEDS: FUROSEMIDE 10 MG/ML 4 ML VIAL IV SCH (08:46)
[2019-05-19] MEDS: HEPARIN SODIUM,PORCINE 5,000 UNIT/ML 1 ML VIAL SQ SCH ×2 (08:46→20:00)
[2019-05-19] MEDS: ISOSORBIDE MONONITRATE ER 60 MG TAB.ER.24H PO SCH (08:46)
[2019-05-19] MEDS: PANTOPRAZOLE 40 MG/10 ML VIAL IVP SCH ×2 (08:46→19:55)
[2019-05-19] MEDS: AZITHROMYCIN 500 MG TAB PO SCH (08:47)
[2019-05-19] MEDS: CLOPIDOGREL 75 MG TAB PO SCH (08:47)
[2019-05-19] MEDS: FENOFIBRATE 160 MG TAB PO SCH (08:47)
[2019-05-19] MEDS: ACETAMINOPHEN TAB 500 MG TAB PO PRN (08:51)
[2019-05-19 09:24] LABS: Basophils # (A) 0.1 k/uL (0-0.2); Basophils % (A) 0 %; Eosinophils % (A) 0 %; HGB 13.5 gm/dL (11.4-16.0); Lymphocytes # (A) 0.8 k/uL (1.0-4.8); Lymphocytes % (A) 6 %; MCH 28.3 pg (25.0-35.0); MCHC 32.1 g/dL (31.0-37.0); MCV 88.1 fL (80.0-100.0); Mean Platelet Volume 8.4; Monocytes # (A) 0.4 k/uL (0-1.0); Monocytes % (A) 3 %; Neutrophils # (A) 13.3 k/uL (1.3-7.7); Neutrophils % (A) 91 %; Platelet Count 191 k/uL (150-450); RBC 4.77 m/uL (3.80-5.40); RDW 13.6 % (11.5-15.5); WBC 14.6 k/uL (3.8-10.6)
[2019-05-19 09:47] LABS: Calcium 8.5 mg/dL (8.4-10.2); Potassium 3.9 mmol/L (3.5-5.1)
[2019-05-19 12:24] LABS: Glucose,Whole Blood 166 mg/dL (75-99)
--- NOTE | 2019-05-19 15:10 | P.PN ---
Subjective Progress Note Date: 05/19/19 This is a very pleasant 89-year-old female patient who is somewhat hard of hearing. She resides at [facility] in [place]. She follows with Dr. Webber as her primary care provider. She has a history of coronary artery disease, pulmonary embolism, hypertension, CVA, anxiety, GERD, congestive heart failure, dual-chamber permanent pacemaker implantation, she was treated with IV diuretics, ceftriaxone and azithromycin. osteoarthritis, hyperlipidemia she had initially presented to [facility] on 05/09/2019 with complaints of nausea vomiting and abdominal pain. She was found to have oxygen saturations in the 80s and was placed on nasal cannula. She was kept for observation for acute hypoxic respiratory failure, gastroenteritis. She had then developed suspicion for pneumonia and a CT angiogram of the chest showed a right lower lobe consolidation. She was slow to progress and subsequently transferred here 05/15/2019 to the general medical floor for further evaluation and treatment. Pro-calcitonin 0.08 within normal limits at [place] labs. Lactic acid 1.0. No leukocytosis. ProBNP 3940. The patient is seen today in consultation on the regular medical floor. She is somewhat hard of hearing but answering questions appropriately. She denies any worsening shortness of breath, cough or congestion. She states previously she had yellow/green productive sputum. She did have a fever while at [place]. Currently afebrile. Maintaining O2 saturations in the low 90s on 2 L/m per nasal cannula. White count 13.2. Hemoglobin 13.0. Sodium 135. Creatinine 0.60. Bicarb 35. She is continued on bronchodilators, ceftriaxone and azithromycin, IV Solu-Medrol. Today's x-ray shows bibasilar consolidation/atelectasis. There is elevated right hemidiaphragm. The patient is seen today in 05/17/2019 in follow-up on the regular medical floor. She is currently up walking with assistance and physical therapy. She is awake and alert in no acute distress. She is breathing a bit easier today compared to yesterday. Still with some dyspnea on exertion. Maintaining good O2 saturations in the mid 90s on 2 L/m per nasal cannula. She is afebrile. Urine culture pending. White count 18.7. Hemoglobin 15.0. Sodium 134. Potassium 4.4. Bicarb 33. Creatinine 0.64. She is continued on Zosyn and azithromycin., Currently on IV Solu-Medrol bronchodilators and continued on IV diuretics. Chest x-ray shows bibasilar consolidation/atelectasis. On 05/18/2019 she has no respiratory difficulties. She is complaining of some vague diffuse abdominal pain and it's been going on for quite some time since admission initiated to [facility] and later on to [place]. She had some limited right lower lobe infiltration and elevation of right hemidiaphragm. She is on room air oxygen. He is on antibiotics with IV Zosyn and Zithromax.. She is going to have a CAT scan of the abdomen today. LFTs have been within normal including AST, ALT, alkaline phosphatase . Normal bilirubin. She did have some limited diarrhea earlier none for now. On 05/19/2019 I'm seeing the patient for a follow-up. She has no respiratory difficulties. In fact most of the symptoms yesterday were related to GI symptoms that the patient was feeling nauseated. Based on that a CAT scan of the abdomen and pelvis was done and the CAT scan showed some a small tiny cavitating lesion in the right lower lobe. Note that when compared to the previous CAT scan of the chest that was done and [facility] on 05/12/2019, this is most likely an area of pneumonia that is somewhat cavitating at this point in time. She had a combination of Zosyn and Zithromax. No hemoptysis. No pleurisy. No nausea or vomiting. No other complaints otherwise for now. No reported aspiration. The white cell count is at 14.6. Rest of the blood work shows no significant abnormalities in renal function is been normal limits. Objective - Vital Signs Vital signs: Vital Signs Temp 97.8 F 05/19/19 14:11 Pulse 95 05/19/19 14:11 Resp 16 05/19/19 14:11 BP 103/64 05/19/19 14:11 Pulse Ox 96 05/19/19 14:11 Intake & Output 05/18/19 05/19/19 05/19/19 18:59 06:59 18:59 Intake Total 450 Output Total 500 500 900 Balance -50 -500 -900 Intake: Oral 450 Output: Urine 500 500 900 Other: Voiding Method Diaper Diaper Diaper Incontinent Incontinent Incontinent # Bowel Movements 0 0 - Exam GENERAL EXAM: Alert, hard of hearing, pleasant 89-year-old female patient, on 2 L comfortable in no apparent distress. HEAD: Normocephalic. EYES: Normal reaction of pupils, equal size. NOSE: Clear with pink turbinates. THROAT: No erythema or exudates. NECK: No masses, no JVD. CHEST: No chest wall deformity. LUNGS: Equal air entry with few crackles in the posterior bases. CVS: S1 and S2 normal with no audible murmur, regular rhythm. ABDOMEN: No hepatosplenomegaly, normal bowel sounds, no guarding or rigidity. SPINE: No scoliosis or deformity SKIN: No rashes CENTRAL NERVOUS SYSTEM: No focal deficits, tone is normal in all 4 extremities. EXTREMITIES: There is no peripheral edema. No clubbing, no cyanosis. Peripheral pulses are intact. - Labs CBC & Chem 7: 05/19/19 08:37 05/19/19 08:37 Labs: Abnormal Lab Results - Last 24 Hours (Table) 05/18/19 05/18/19 05/19/19 Range/Units 17:04 21:00 07:20 WBC (3.8-10.6) k/uL Neutrophils # (1.3-7.7) k/uL Lymphocytes # (1.0-4.8) k/uL Sodium (137-145) mmol/L Chloride (98-107) mmol/L Carbon Dioxide (22-30) mmol/L BUN (7-17) mg/dL Glucose (74-99) mg/dL POC Glucose (mg/dL) 144 H 164 H 122 H (75-99) mg/dL 05/19/19 05/19/19 05/19/19 Range/Units 08:37 08:37 12:19 WBC 14.6 H (3.8-10.6) k/uL Neutrophils # 13.3 H (1.3-7.7) k/uL Lymphocytes # 0.8 L (1.0-4.8) k/uL Sodium 133 L (137-145) mmol/L Chloride 91 L (98-107) mmol/L Carbon Dioxide 34 H (22-30) mmol/L BUN 29 H (7-17) mg/dL Glucose 208 H (74-99) mg/dL POC Glucose (mg/dL) 166 H (75-99) mg/dL Microbiology - Last 24 Hours (Table) 05/16/19 15:54 Blood Culture - Preliminary Blood No Growth after 48 hours 05/17/19 07:23 Urine Culture - Final Urine,Clean Catch Assessment and Plan Plan: 1 Abdominal discomfort secondary to nausea, vomiting and diarrhea. The patient's diarrhea has subsided. Nevertheless she is still having some nausea and vague abdominal discomfort and computed tomography scan of the abdomen and pelvis was within normal limits. 2 Acute hypoxic respiratory failure secondary to a right lower lobe pneumonia per CT results at [facility] and the subsequent CAT scan of the abdomen and pelvis that was done yesterday showed some early cavitating lesion in the right lower lobe which is the same area where the pneumonia was. It seems that the patient is developing a cavitating pneumonia, consider gram-negative, consider anaerobes, consider aspiration. 3 Bibasilar consolidation/atelectasis, elevated right hemidiaphragm 4 Hypertension 5 Chronic diastolic congestive heart failure 6 Atherosclerotic heart disease 7 Sick sinus syndrome, status post permanent pacemaker implantation 8 History of CVA 9 Hyperlipidemia 10 Osteoarthritis 11 Anxiety 12 Gastroesophageal reflux disease Plan This cavitating corneal lesion in the right lower lobe is unlikely to be malignancy. Based on the progression of the changes that are seen in the right lower lobe, this is most likely an infectious cause. Consider gram-negative. Consider anaerobes in the right lower lobe. Consider aspiration. Continued IV Zosyn. Discharge home on Augmentin to be having a follow-up CAT scan in 3-4 months time.
[2019-05-19 17:48] LABS: Glucose,Whole Blood 158 mg/dL (75-99)
--- NOTE | 2019-05-19 18:43 | P.PN ---
Subjective Progress Note Date: 05/19/19 On 05/19/2019 I'm seeing the patient for a follow-up. She has no respiratory difficulties. In fact most of the symptoms yesterday were related to GI symptoms that the patient was feeling nauseated. Based on that a CAT scan of the abdomen and pelvis was done and the CAT scan showed some a small tiny cavi tating lesion in the right lower lobe. Note that when compared to the previous CAT scan of the chest that was done and [facility] on 05/12/2019, this is most likely an area of pneumonia that is somewhat cavitating at this point in time. She had a combination of Zosyn and Zithromax. No hemoptysis. No pleurisy. No nausea or vomiting. No other complaints otherwise for now. No reported aspiration. The white cell count is at 14.6. Rest of the blood work shows no significant abnormalities in renal function is been normal limits. Objective - Vital Signs Vital signs: Vital Signs Temp 97.7 F 05/19/19 05:48 Pulse 84 05/19/19 11:28 Resp 22 05/19/19 05:48 BP 180/76 05/19/19 05:48 Pulse Ox 97 05/19/19 06:50 Intake & Output 05/18/19 05/19/19 05/19/19 18:59 06:59 18:59 Intake Total 450 Output Total 500 500 Balance -50 -500 Intake: Oral 450 Output: Urine 500 500 Other: Voiding Method Diaper Diaper Diaper Incontinent Incontinent Incontinent # Bowel Movements 0 0 - Exam PHYSICAL EXAMINATION: GENERAL: The patient is alert and oriented x3, not in any acute distress. Well developed, well nourished. HEENT: Pupils are round and equally reacting to light. EOMI. No scleral icterus. No conjunctival pallor. Normocephalic, atraumatic. No pharyngeal erythema. No thyromegaly. CARDIOVASCULAR: S1 and S2 present. No murmurs, rubs, or gallops. PULMONARY: Chest is clear to auscultation, no wheezing or crackles. ABDOMEN: Soft, nontender, nondistended, normoactive bowel sounds. No palpable organomegaly. MUSCULOSKELETAL: No joint swelling or deformity. EXTREMITIES: No cyanosis, clubbing, or pedal edema. NEUROLOGICAL: Gross neurological examination did not reveal any focal deficits. SKIN: No rashes. - Labs CBC & Chem 7: 05/19/19 08:37 05/19/19 08:37 Labs: Abnormal Lab Results - Last 24 Hours (Table) 05/18/19 05/18/19 05/18/19 Range/Units 11:45 17:04 21:00 WBC (3.8-10.6) k/uL Neutrophils # (1.3-7.7) k/uL Lymphocytes # (1.0-4.8) k/uL Sodium (137-145) mmol/L Chloride (98-107) mmol/L Carbon Dioxide (22-30) mmol/L BUN (7-17) mg/dL Glucose (74-99) mg/dL POC Glucose (mg/dL) 153 H 144 H 164 H (75-99) mg/dL 05/19/19 05/19/19 05/19/19 Range/Units 07:20 08:37 08:37 WBC 14.6 H (3.8-10.6) k/uL Neutrophils # 13.3 H (1.3-7.7) k/uL Lymphocytes # 0.8 L (1.0-4.8) k/uL Sodium 133 L (137-145) mmol/L Chloride 91 L (98-107) mmol/L Carbon Dioxide 34 H (22-30) mmol/L BUN 29 H (7-17) mg/dL Glucose 208 H (74-99) mg/dL POC Glucose (mg/dL) 122 H (75-99) mg/dL Microbiology - Last 24 Hours (Table) 05/16/19 15:54 Blood Culture - Preliminary Blood No Growth after 48 hours 05/17/19 07:23 Urine Culture - Final Urine,Clean Catch Assessment and Plan Assessment: 1 Abdominal discomfort secondary to nausea, vomiting and diarrhea. The patient's diarrhea has subsided. Nevertheless she is still having some nausea and vague abdominal discomfort and computed tomography scan of the abdomen and pelvis was within normal limits. 2 Acute hypoxic respiratory failure secondary to a right lower lobe pneumonia per CT results at [facility] and the subsequent CAT scan of the abdomen and pelvis that was done yesterday showed some early cavitating lesion in the right lower lobe which is the same area where the pneumonia was. It seems that the patient is developing a cavitating pneumonia, consider gram-negative, consider anaerobes, consider aspiration. 3 Bibasilar consolidation/atelectasis, elevated right hemidiaphragm 4 Hypertension 5 Chronic diastolic congestive heart failure 6 Atherosclerotic heart disease 7 Sick sinus syndrome, status post permanent pacemaker implantation 8 History of CVA 9 Hyperlipidemia 10 Osteoarthritis 11 Anxiety 12 Gastroesophageal reflux disease Plan This cavitating corneal lesion in the right lower lobe is unlikely to be malignancy. Based on the progression of the changes that are seen in the right lower lobe, this is most likely an infectious cause. Consider gram-negative. Consider anaerobes in the right lower lobe. Consider aspiration. Continued IV Zosyn. Discharge home on Augmentin to be having a follow-up CAT scan in 3-4 months time.
[2019-05-19] MEDS: traZODone HCL 50 MG TAB PO PRN (19:56)
[2019-05-19] MEDS: SERTRALINE 50 MG TAB PO SCH (19:56)
[2019-05-19] MEDS: PRAVASTATIN SODIUM 40 MG TAB PO SCH (19:56)
[2019-05-19 20:42] LABS: Glucose,Whole Blood 226 mg/dL (75-99)
[2019-05-20] MEDS: PIPERACILLIN-TAZOBACTAM 3.375 GM in SODIUM CHLORIDE 0.9% 100 ML IVPB SCH ×2 (00:29→08:29)
[2019-05-20] MEDS: methylPREDNISolone SOD SUCCI 40 MG/ML 1 ML VIAL IV SCH ×5 (00:29→23:34)
[2019-05-20] MEDS: ACETAMINOPHEN TAB 500 MG TAB PO PRN ×2 (04:32→20:06)
[2019-05-20 07:12] LABS: Glucose,Whole Blood 125 mg/dL (75-99)
[2019-05-20] MEDS: INSULIN ASPART (NovoLOG) 100 UNIT/ML VIAL SQ SCH ×4 (07:44→21:00)
[2019-05-20 08:07] LABS: Basophils # (A) 0.2 k/uL (0-0.2); Basophils % (A) 1 %; Eosinophils % (A) 0 %; HCT 38.3 % (34.0-46.0); HGB 12.2 gm/dL (11.4-16.0); Lymphocytes # (A) 0.6 k/uL (1.0-4.8); Lymphocytes % (A) 4 %; MCH 27.5 pg (25.0-35.0); MCHC 31.8 g/dL (31.0-37.0); MCV 86.3 fL (80.0-100.0); Mean Platelet Volume 8.6; Monocytes # (A) 0.5 k/uL (0-1.0); Monocytes % (A) 4 %; Neutrophils # (A) 13.6 k/uL (1.3-7.7); Neutrophils % (A) 91 %; Platelet Count 176 k/uL (150-450); RBC 4.44 m/uL (3.80-5.40); RDW 13.5 % (11.5-15.5)
[2019-05-20] MEDS: IPRATROPIUM-ALBUTEROL 3 ML NEB INHALATION SCH ×4 (08:27→20:02)
[2019-05-20] MEDS: BUDESONIDE 1 MG/2 ML NEBU INHALATION SCH ×2 (08:27→20:02)
[2019-05-20] MEDS: FUROSEMIDE 10 MG/ML 4 ML VIAL IV SCH (08:31)
[2019-05-20] MEDS: amLODIPine 5 MG TAB PO SCH (08:31)
[2019-05-20] MEDS: HEPARIN SODIUM,PORCINE 5,000 UNIT/ML 1 ML VIAL SQ SCH ×2 (08:31→20:07)
[2019-05-20] MEDS: ISOSORBIDE MONONITRATE ER 60 MG TAB.ER.24H PO SCH (08:31)
[2019-05-20] MEDS: CLOPIDOGREL 75 MG TAB PO SCH (08:31)
[2019-05-20] MEDS: LOSARTAN 50 MG TAB PO SCH (08:31)
[2019-05-20] MEDS: FENOFIBRATE 160 MG TAB PO SCH (08:31)
[2019-05-20] MEDS: PANTOPRAZOLE 40 MG/10 ML VIAL IVP SCH ×2 (08:31→20:04)
[2019-05-20 08:34] LABS: African American GFR (CKD) >90 (>60 ml/min/1.73 sqM); Anion Gap 4 mmol/L; Blood Urea Nitrogen 32 mg/dL (7-17); Calcium 8.3 mg/dL (8.4-10.2); Carbon Dioxide 35 mmol/L (22-30); Chloride 93 mmol/L (98-107); Glucose 120 mg/dL (74-99); Non-African American GFR(CKD) 80 (>60 ml/min/1.73 sqM); Sodium 132 mmol/L (137-145)
--- NOTE | 2019-05-20 10:46 | P.PN ---
Subjective Progress Note Date: 05/20/19 This is a very pleasant 89-year-old female patient who is somewhat hard of hearing. She resides at [facility] in [place]. She follows with Dr. Webber as her primary care provider. She has a history of coronary artery disease, pulmonary embolism, hypertension, CVA, anxiety, GERD, congestive heart failure, dual-chamber permanent pacemaker implantation, she was treated with IV diuretics, ceftriaxone and azithromycin. osteoarthritis, hyperlipidemia she had initially presented to [facility] on 05/09/2019 with complaints of nausea vomiting and abdominal pain. She was found to have oxygen saturations in the 80s and was placed on nasal cannula. She was kept for observation for acute hypoxic respiratory failure, gastroenteritis. She had then developed suspicion for pneumonia and a CT angiogram of the chest showed a right lower lobe consolidation. She was slow to progress and subsequently transferred here 05/15/2019 to the general medical floor for further evaluation and treatment. Pro-calcitonin 0.08 within normal limits at [place] labs. Lactic acid 1.0. No leukocytosis. ProBNP 3940. The patient is seen today in consultation on the regular medical floor. She is somewhat hard of hearing but answering questions appropriately. She denies any worsening shortness of breath, cough or congestion. She states previously she had yellow/green productive sputum. She did have a fever while at [place]. Currently afebrile. Maintaining O2 saturations in the low 90s on 2 L/m per nasal cannula. White count 13.2. Hemoglobin 13.0. Sodium 135. Creatinine 0.60. Bicarb 35. She is continued on bronchodilators, ceftriaxone and azithromycin, IV Solu-Medrol. Today's x-ray shows bibasilar consolidation/atelectasis. There is elevated right hemidiaphragm. The patient is seen today in 05/17/2019 in follow-up on the regular medical floor. She is currently up walking with assistance and physical therapy. She is awake and alert in no acute distress. She is breathing a bit easier today compared to yesterday. Still with some dyspnea on exertion. Maintaining good O2 saturations in the mid 90s on 2 L/m per nasal cannula. She is afebrile. Urine culture pending. White count 18.7. Hemoglobin 15.0. Sodium 134. Potassium 4.4. Bicarb 33. Creatinine 0.64. She is continued on Zosyn and azithromycin., Currently on IV Solu-Medrol bronchodilators and continued on IV diuretics. Chest x-ray shows bibasilar consolidation/atelectasis. On 05/18/2019 she has no respiratory difficulties. She is complaining of some vague diffuse abdominal pain and it's been going on for quite some time since admission initiated to [place] and later on to [place]. She had some limited right lower lobe infiltration and elevation of right hemidiaphragm. She is on room air oxygen. He is on antibiotics with IV Zosyn and Zithromax.. She is going to have a CAT scan of the abdomen today. LFTs have been within normal including AST, ALT, alkaline phosphatase . Normal bilirubin. She did have some limited diarrhea earlier none for now. On 05/19/2019 I'm seeing the patient for a follow-up. She has no respiratory difficulties. In fact most of the symptoms yesterday were related to GI symptoms that the patient was feeling nauseated. Based on that a CAT scan of the abdomen and pelvis was done and the CAT scan showed some a small tiny cavitating lesion in the right lower lobe. Note that when compared to the previous CAT scan of the chest that was done and [facility] on 05/12/2019, this is most likely an area of pneumonia that is somewhat cavitating at this point in time. She had a combination of Zosyn and Zithromax. No hemoptysis. No pleurisy. No nausea or vomiting. No other complaints otherwise for now. No reported aspiration. The white cell count is at 14.6. Rest of the blood work shows no significant abnormalities in renal function is been normal limits. On 05/20/2019 the patient is having liquidy frequent bowel movements. I stopped the Zithromax yesterday. I am still having this patient on Zosyn. The CAT scan of the abdomen that showed some limited cavitating lesion in the right lower lobe which I suspect that it cavitating pneumonia. In any rate, the images was quite limited I'm going to repeat the CAT scan of the chest prior to making further decisions regarding antibiotic course and duration and the need for ongoing antibiotic treatment this patient. I will bit surprised that the patient Is sedated so early within few days following the original CAT scan of the chest. No nausea. No vomiting. No abdominal pain. She is hemodynamically stable. No altered mentation. She is on room air oxygen. Objective - Vital Signs Vital signs: Vital Signs Temp 97.1 F L 05/20/19 04:40 Pulse 88 05/20/19 08:44 Resp 20 05/20/19 04:40 BP 148/77 05/20/19 08:32 Pulse Ox 99 05/20/19 08:32 Intake & Output 05/19/19 05/20/19 05/20/19 18:59 06:59 18:59 Intake Total 300 Output Total 900 Balance -900 300 Weight 71.5 kg Intake: Oral 300 Output: Urine 900 Other: Voiding Method Diaper Diaper Diaper Incontinent Incontinent Incontinent # Voids 3 # Bowel Movements 0 2 - Exam GENERAL EXAM: Alert, hard of hearing, pleasant 89-year-old female patient, on 2 L comfortable in no apparent distress. HEAD: Normocephalic. EYES: Normal reaction of pupils, equal size. NOSE: Clear with pink turbinates. THROAT: No erythema or exudates. NECK: No masses, no JVD. CHEST: No chest wall deformity. LUNGS: Equal air entry with few crackles in the posterior bases. CVS: S1 and S2 normal with no audible murmur, regular rhythm. ABDOMEN: No hepatosplenomegaly, normal bowel sounds, no guarding or rigidity. SPINE: No scoliosis or deformity SKIN: No rashes CENTRAL NERVOUS SYSTEM: No focal deficits, tone is normal in all 4 extremities. EXTREMITIES: There is no peripheral edema. No clubbing, no cyanosis. Peripheral pulses are intact. - Labs CBC & Chem 7: 05/20/19 07:13 05/20/19 07:13 Labs: Abnormal Lab Results - Last 24 Hours (Table) 05/19/19 05/19/19 05/19/19 Range/Units 12:19 17:28 20:39 WBC (3.8-10.6) k/uL Neutrophils # (1.3-7.7) k/uL Lymphocytes # (1.0-4.8) k/uL Sodium (137-145) mmol/L Chloride (98-107) mmol/L Carbon Dioxide (22-30) mmol/L BUN (7-17) mg/dL Glucose (74-99) mg/dL POC Glucose (mg/dL) 166 H 158 H 226 H (75-99) mg/dL Calcium (8.4-10.2) mg/dL 05/20/19 05/20/19 05/20/19 Range/Units 06:58 07:13 07:13 WBC 15.0 H (3.8-10.6) k/uL Neutrophils # 13.6 H (1.3-7.7) k/uL Lymphocytes # 0.6 L (1.0-4.8) k/uL Sodium 132 L (137-145) mmol/L Chloride 93 L (98-107) mmol/L Carbon Dioxide 35 H (22-30) mmol/L BUN 32 H (7-17) mg/dL Glucose 120 H (74-99) mg/dL POC Glucose (mg/dL) 125 H (75-99) mg/dL Calcium 8.3 L (8.4-10.2) mg/dL Microbiology - Last 24 Hours (Table) 05/16/19 15:54 Blood Culture - Preliminary Blood No Growth after 72 hours Assessment and Plan Plan: 1 Abdominal discomfort secondary to nausea, vomiting and diarrhea. The patient's diarrhea has subsided. Nevertheless she is still having some nausea and vague abdominal discomfort and computed tomography scan of the abdomen and pelvis was within normal limits. 2 Acute hypoxic respiratory failure secondary to a right lower lobe pneumonia per CT results at [facility] and the subsequent CAT scan of the abdomen and pelvis that was done yesterday showed some early cavitating lesion in the right lower lobe which is the same area where the pneumonia was. It seems that the patient is developing a cavitating pneumonia, consider gram-negative, con media strategist anaerobes, consider aspiration. I'm a surprised by the rapid is developing cavitary change in the right lower lobe. This could be obviously a pneumonic findings. We'll obtain a CAT scan of the chest to further characterize the right lower lobe changes and decide on further antibiotic treatment specially the patient is having diarrhea. 3 Bibasilar consolidation/atelectasis, elevated right hemidiaphragm 4 Hypertension 5 Chronic diastolic congestive heart failure 6 Atherosclerotic heart disease 7 Sick sinus syndrome, status post permanent pacemaker implantation 8 History of CVA 9 Hyperlipidemia 10 Osteoarthritis 11 Anxiety 12 Gastroesophageal reflux disease 13 diarrhea, consider antibiotic induced. Plan This cavitating corneal lesion in the right lower lobe is unlikely to be malignancy. Based on the progression of the changes that are seen in the right lower lobe, this is most likely an infectious cause. Consider gram-negative. Consider anaerobes in the right lower lobe. Consider aspiration. I'm going to obtain a CAT scan of the chest without contrast to characterize the right lower lobe abnormality and decide on the need and duration of antibiotic treatment accordingly. Meanwhile, the patient is developing diarrhea. Zithromax has been stopped. Check stool for C. diff.
[2019-05-20 12:25] LABS: Glucose,Whole Blood 155 mg/dL (75-99)
--- NOTE | 2019-05-20 12:51 | CT ---
EXAMINATION TYPE: CT chest wo con DATE OF EXAM: 05/20/2019 COMPARISON: Previous study dated 02/07/2011. HISTORY: Cavitary lesion RLL CT DLP: 460 mGycm. Automated Exposure Control for Dose Reduction was Utilized. TECHNIQUE: CT scan of the thorax is performed without IV contrast. FINDINGS: There is a 2.0 x 1.5 x 1.6 cm cavitary lesion in the right lower lobe. This has fairly thin abraham. No additional parenchymal lesion is seen. There is no significant axillary, internal mammary, mediastinal or hilar adenopathy. There is no sign ificant pleural pericardial fluid. The heart is not enlarged. A pacemaker is in place. There is a moderate sliding hiatal hernia present. There is marked elevation of the right hemidiaphragm. There is rather extensive atheromatous calcification of the visualized arterial tree. There is hypertrophic spondylosis present within the spine. IMPRESSION: Thin-walled cavitary lesion in the right lower lobe adjacent to the major fissure, thus placing it in the superior segment of the right lower lobe.. The presence of a thin-walled makes infectious causes less likely. A posttraumatic pneumatocele would be a possibility. Other benign cystic lesions of the chest are not excluded. Cavitation of a malignant lesion is felt to be unlikely due to the thin wall .
[2019-05-20 17:10] LABS: Glucose,Whole Blood 145 mg/dL (75-99)
[2019-05-20] MEDS: traZODone HCL 50 MG TAB PO PRN (20:06)
[2019-05-20] MEDS: PRAVASTATIN SODIUM 40 MG TAB PO SCH (20:06)
[2019-05-20] MEDS: SERTRALINE 50 MG TAB PO SCH (20:06)
[2019-05-20 20:24] LABS: Glucose,Whole Blood 218 mg/dL (75-99)
[2019-05-21] MEDS: methylPREDNISolone SOD SUCCI 40 MG/ML 1 ML VIAL IV SCH (05:34)
[2019-05-21 07:03] LABS: Glucose,Whole Blood 132 mg/dL (75-99)
[2019-05-21] MEDS: INSULIN ASPART (NovoLOG) 100 UNIT/ML VIAL SQ SCH ×4 (07:10→22:24)
[2019-05-21] MEDS: BUDESONIDE 1 MG/2 ML NEBU INHALATION SCH ×2 (07:33→19:42)
[2019-05-21] MEDS: IPRATROPIUM-ALBUTEROL 3 ML NEB INHALATION SCH ×4 (07:33→19:42)
[2019-05-21] MEDS: LOSARTAN 50 MG TAB PO SCH (08:17)
[2019-05-21] MEDS: FUROSEMIDE 10 MG/ML 4 ML VIAL IV SCH (08:17)
[2019-05-21] MEDS: PANTOPRAZOLE 40 MG/10 ML VIAL IVP SCH (08:17)
[2019-05-21] MEDS: CLOPIDOGREL 75 MG TAB PO SCH (08:18)
[2019-05-21] MEDS: FENOFIBRATE 160 MG TAB PO SCH (08:18)
[2019-05-21] MEDS: amLODIPine 5 MG TAB PO SCH (08:18)
[2019-05-21] MEDS: ISOSORBIDE MONONITRATE ER 60 MG TAB.ER.24H PO SCH (08:18)
[2019-05-21] MEDS: HEPARIN SODIUM,PORCINE 5,000 UNIT/ML 1 ML VIAL SQ SCH ×2 (08:18→21:55)
[2019-05-21 08:34] LABS: African American GFR (CKD) >90 (>60 ml/min/1.73 sqM); Anion Gap 1 mmol/L; Blood Urea Nitrogen 28 mg/dL (7-17); Calcium 8.3 mg/dL (8.4-10.2); Carbon Dioxide 36 mmol/L (22-30); Chloride 94 mmol/L (98-107); Glucose 124 mg/dL (74-99); Non-African American GFR(CKD) 86 (>60 ml/min/1.73 sqM); Potassium 4.3 mmol/L (3.5-5.1); Sodium 131 mmol/L (137-145)
[2019-05-21 08:39] LABS: Basophils # (A) 0.1 k/uL (0-0.2); Basophils % (A) 0 %; Eosinophils # (A) 0.1 k/uL (0-0.7); Eosinophils % (A) 0 %; HGB 12.2 gm/dL (11.4-16.0); Lymphocytes # (A) 0.7 k/uL (1.0-4.8); Lymphocytes % (A) 4 %; MCH 27.2 pg (25.0-35.0); MCHC 31.2 g/dL (31.0-37.0); Mean Platelet Volume 8.4; Monocytes # (A) 0.6 k/uL (0-1.0); Monocytes % (A) 4 %; Neutrophils # (A) 13.6 k/uL (1.3-7.7); Neutrophils % (A) 91 %; Platelet Count 176 k/uL (150-450); RBC 4.48 m/uL (3.80-5.40); RDW 13.6 % (11.5-15.5)
--- NOTE | 2019-05-21 10:06 | P.PN ---
Subjective Progress Note Date: 05/20/19 Principal diagnosis: Acute hypoxic respiratory failure secondary to cavitating pneumonia Abdominal pain 05/19/2019 seeing the patient for a follow-up. She has no respiratory difficulties. In fact most of the symptoms yesterday were related to GI symptoms that the patient was feeling nauseated. Based on that a CAT scan of the abdomen and pelvis was done and the CAT scan showed some a small tiny cavitating lesion in the right lower lobe. Note that when compared to the previous CAT scan of the chest that was done and [facility] on 05/12/2019, this is most likely an area of pneumonia that is somewhat cavitating at this point in time. She had a combination of Zosyn and Zithromax. No hemoptysis. No pleurisy. No nausea or vomiting. No other complaints otherwise for now. No reported aspiration. The white cell count is at 14.6. Rest of the blood work shows no significant abnormalities in renal function is been normal limits. 05/20/2019 Patient is seen and evaluated in room at bedside; patient denies any specific complaints Vital signs with a temperature of 97.1, pulse 88, respiration 20 and blood pressure 148/77 with SpO2 of 99 Lab review shows an elevated white blood count of 15.0 which has trended down from 18.7 upon admission; sodium 132 with potassium of 4.0, B UN/creatinine of 32/0.65; blood glucose ranges between 120-218 CT of the abdomen showed cavitating lesion in right lower lobe which was followed with dedicated CT of the chest; pulmonary service is following; Zithromax has been discontinued and patient remains on IV Zosyn Objective - Vital Signs Vital signs: Vital Signs Temp 97.0 F L 05/20/19 12:36 Pulse 84 05/20/19 16:15 Resp 20 05/20/19 12:36 BP 109/57 05/20/19 12:36 Pulse Ox 90 L 05/20/19 12:36 Intake & Output 05/19/19 05/20/19 05/20/19 18:59 06:59 18:59 Intake Total 300 Output Total 900 Balance -900 300 Weight 71.5 kg Intake: Oral 300 Output: Urine 900 Other: Voiding Method Diaper Diaper Diaper Incontinent Incontinent Incontinent # Voids 3 2 # Bowel Movements 0 2 4 - Exam PHYSICAL EXAMINATION: GENERAL: The patient is alert and oriented x3, not in any acute distress. Well developed, well nourished. HEENT: Pupils are round and equally reacting to light. EOMI. No scleral icterus. No conjunctival pallor. Normocephalic, atraumatic. No pharyngeal erythema. No thyromegaly. CARDIOVASCULAR: S1 and S2 present. No murmurs, rubs, or gallops. PULMONARY: Chest is clear to auscultation, no wheezing or crackles. ABDOMEN: Soft, nontender, nondistended, normoactive bowel sounds. No palpable organomegaly. MUSCULOSKELETAL: No joint swelling or deformity. EXTREMITIES: No cyanosis, clubbing, or pedal edema. NEUROLOGICAL: Gross neurological examination did not reveal any focal deficits. SKIN: No rashes. - Labs CBC & Chem 7: 05/21/19 07:49 05/21/19 07:49 Labs: Abnormal Lab Results - Last 24 Hours (Table) 05/19/19 05/19/19 05/20/19 Range/Units 17:28 20:39 06:58 WBC (3.8-10.6) k/uL Neutrophils # (1.3-7.7) k/uL Lymphocytes # (1.0-4.8) k/uL Sodium (137-145) mmol/L Chloride (98-107) mmol/L Carbon Dioxide (22-30) mmol/L BUN (7-17) mg/dL Glucose (74-99) mg/dL POC Glucose (mg/dL) 158 H 226 H 125 H (75-99) mg/dL Calcium (8.4-10.2) mg/dL 05/20/19 05/20/19 05/20/19 Range/Units 07:13 07:13 12:04 WBC 15.0 H (3.8-10.6) k/uL Neutrophils # 13.6 H (1.3-7.7) k/uL Lymphocytes # 0.6 L (1.0-4.8) k/uL Sodium 132 L (137-145) mmol/L Chloride 93 L (98-107) mmol/L Carbon Dioxide 35 H (22-30) mmol/L BUN 32 H (7-17) mg/dL Glucose 120 H (74-99) mg/dL POC Glucose (mg/dL) 155 H (75-99) mg/dL Calcium 8.3 L (8.4-10.2) mg/dL 05/20/19 Range/Units 16:57 WBC (3.8-10.6) k/uL Neutrophils # (1.3-7.7) k/uL Lymphocytes # (1.0-4.8) k/uL Sodium (137-145) mmol/L Chloride (98-107) mmol/L Carbon Dioxide (22-30) mmol/L BUN (7-17) mg/dL Glucose (74-99) mg/dL POC Glucose (mg/dL) 145 H (75-99) mg/dL Calcium (8.4-10.2) mg/dL Microbiology - Last 24 Hours (Table) 05/16/19 15:54 Blood Culture - Preliminary Blood No Growth after 72 hours Assessment and Plan Assessment: 1 Abdominal discomfort secondary to nausea, vomiting and diarrhea. The patient's diarrhea has subsided. Nevertheless she is still having some nausea and vague abdominal discomfort and computed tomography scan of the abdomen and pelvis was within normal limits. 2 Acute hypoxic respiratory failure secondary to a right lower lobe pneumonia per CT results at [facility] and the subsequent CAT scan of the abdomen and pelvis that was done yesterday showed some early cavitating lesion in the right lower lobe which is the same area where the pneumonia was. It seems that the patient is developing a cavitating pneumonia, consider gram-negative, consider anaerobes, consider aspiration. 3 Bibasilar consolidation/atelectasis, elevated right hemidiaphragm 4 Hypertension 5 Chronic diastolic congestive heart failure 6 Atherosclerotic heart disease 7 Sick sinus syndrome, status post permanent pacemaker implantation 8 History of CVA 9 Hyperlipidemia 10 Osteoarthritis 11 Anxiety 12 Gastroesophageal reflux disease Plan This cavitating corneal lesion in the right lower lobe is unlikely to be malignancy. Based on the progression of the changes that are seen in the right lower lobe, this is most likely an infectious cause. Consider gram-negative. Consider anaerobes in the right lower lobe. Consider aspiration. Continued IV Zosyn. Discharge home on Augmentin to be having a follow-up CAT scan in 3-4 months time.
[2019-05-21 12:18] LABS: Glucose,Whole Blood 133 mg/dL (75-99)
[2019-05-21] MEDS: SODIUM CHLORIDE 0.9% 1,000 ML IV SCH (12:33)
--- NOTE | 2019-05-21 14:05 | P.PN ---
Subjective Progress Note Date: 05/21/19 This is a very pleasant 89-year-old female patient who is somewhat hard of hearing. She resides at [facility] in [place]. She follows with Dr. Webber as her primary care provider. She has a history of coronary artery disease, pulmonary embolism, hypertension, CVA, anxiety, GERD, congestive heart failure, dual-chamber permanent pacemaker implantation, she was treated with IV diuretics, ceftriaxone and azithromycin. osteoarthritis, hyperlipidemia she had initially presented to [facility] on 05/09/2019 with complaints of nausea vomiting and abdominal pain. She was found to have oxygen saturations in the 80s and was placed on nasal cannula. She was kept for observation for acute hypoxic respiratory failure, gastroenteritis. She had then developed suspicion for pneumonia and a CT angiogram of the chest showed a right lower lobe consolidation. She was slow to progress and subsequently transferred here 05/15/2019 to the general medical floor for further evaluation and treatment. Pro-calcitonin 0.08 within normal limits at [facility] labs. Lactic acid 1.0. No leukocytosis. ProBNP 3940. The patient is seen today in consultation on the regular medical floor. She is somewhat hard of hearing but answering questions appropriately. She denies any worsening shortness of breath, cough or congestion. She states previously she had yellow/green productive sputum. She did have a fever while at [place]. Currently afebrile. Maintaining O2 saturations in the low 90s on 2 L/m per nasal cannula. White count 13.2. Hemoglobin 13.0. Sodium 135. Creatinine 0.60. Bicarb 35. She is continued on bronchodilators, ceftriaxone and azithromycin, IV Solu-Medrol. Today's x-ray shows bibasilar consolidation/atelectasis. There is elevated right hemidiaphragm. The patient is seen today in 05/17/2019 in follow-up on the regular medical floor. She is currently up walking with assistance and physical therapy. She is awake and alert in no acute distress. She is breathing a bit easier today compared to yesterday. Still with some dyspnea on exertion. Maintaining good O2 saturations in the mid 90s on 2 L/m per nasal cannula. She is afebrile. Urine culture pending. White count 18.7. Hemoglobin 15.0. Sodium 134. Potassium 4.4. Bicarb 33. Creatinine 0.64. She is continued on Zosyn and azithromycin., Currently on IV Solu-Medrol bronchodilators and continued on IV diuretics. Chest x-ray shows bibasilar consolidation/atelectasis. On 05/18/2019 she has no respiratory difficulties. She is complaining of some vague diffuse abdominal pain and it's been going on for quite some time since admission initiated to [facility] and later on to [place]. She had some limited right lower lobe infiltration and elevation of right hemidiaphragm. She is on room air oxygen. He is on antibiotics with IV Zosyn and Zithromax.. She is going to have a CAT scan of the abdomen today. LFTs have been within normal including AST, ALT, alkaline phosphatase . Normal bilirubin. She did have some limited diarrhea earlier none for now. On 05/19/2019 I'm seeing the patient for a follow-up. She has no respiratory difficulties. In fact most of the symptoms yesterday were related to GI symptoms that the patient was feeling nauseated. Based on that a CAT scan of the abdomen and pelvis was done and the CAT scan showed some a small tiny cavitating lesion in the right lower lobe. Note that when compared to the previous CAT scan of the chest that was done and [facility] on 05/12/2019, this is most likely an area of pneumonia that is somewhat cavitating at this point in time. She had a combination of Zosyn and Zithromax. No hemoptysis. No pleurisy. No nausea or vomiting. No other complaints otherwise for now. No reported aspiration. The white cell count is at 14.6. Rest of the blood work shows no significant abnormalities in renal function is been normal limits. On 05/20/2019 the patient is having liquidy frequent bowel movements. I stopped the Zithromax yesterday. I am still having this patient on Zosyn. The CAT scan of the abdomen that showed some limited cavitating lesion in the right lower lobe which I suspect that it cavitating pneumonia. In any rate, the images was quite limited I'm going to repeat the CAT scan of the chest prior to making further decisions regarding antibiotic course and duration and the need for ongoing antibiotic treatment this patient. I will bit surprised that the patient Is sedated so early within few days following the original CAT scan of the chest. No nausea. No vomiting. No abdominal pain. She is hemodynamically stable. No altered mentation. She is on room air oxygen. On today's evaluation of 05/21/2019, the patient is feeling better. Diarrhea subsided. Repeat CAT scan of the chest was done and showed a thin-walled cavitary lesion right lower lobe adjacent to the major fissure. This is a thin- walled area and postinfectious pneumatocele is contemplated. Malignancy is felt to be less likely and the patient is feeling well. No major respiratory difficulties for now. I have taken this patient off the oxygen. Objective - Vital Signs Vital signs: Vital Signs Temp 97.5 F L 05/21/19 04:45 Pulse 84 05/21/19 11:26 Resp 20 05/21/19 04:45 BP 130/76 05/21/19 04:45 Pulse Ox 99 05/21/19 04:45 Intake & Output 05/20/19 05/21/19 05/21/19 18:59 06:59 18:59 Intake Total 300 Output Total 1 Balance 299 Weight 72.5 kg Intake: Oral 300 Output: Urine/Stool Mix 1 Other: Voiding Method Diaper Diaper Diaper Incontinent Incontinent Incontinent # Voids 2 2 4 # Bowel Movements 0 1 0 - Exam GENERAL EXAM: Alert, hard of hearing, pleasant 89-year-old female patient, on 2 L comfortable in no apparent distress. HEAD: Normocephalic. EYES: Normal reaction of pupils, equal size. NOSE: Clear with pink turbinates. THROAT: No erythema or exudates. NECK: No masses, no JVD. CHEST: No chest wall deformity. LUNGS: Equal air entry with few crackles in the posterior bases. CVS: S1 and S2 normal with no audible murmur, regular rhythm. ABDOMEN: No hepatosplenomegaly, normal bowel sounds, no guarding or rigidity. SPINE: No scoliosis or deformity SKIN: No rashes CENTRAL NERVOUS SYSTEM: No focal deficits, tone is normal in all 4 extremities. EXTREMITIES: There is no peripheral edema. No clubbing, no cyanosis. Peripheral pulses are intact. - Labs CBC & Chem 7: 05/21/19 07:49 05/21/19 07:49 Labs: Abnormal Lab Results - Last 24 Hours (Table) 05/20/19 05/20/19 05/21/19 Range/Units 16:57 20:19 06:52 WBC (3.8-10.6) k/uL Neutrophils # (1.3-7.7) k/uL Lymphocytes # (1.0-4.8) k/uL Sodium (137-145) mmol/L Chloride (98-107) mmol/L Carbon Dioxide (22-30) mmol/L BUN (7-17) mg/dL Glucose (74-99) mg/dL POC Glucose (mg/dL) 145 H 218 H 132 H (75-99) mg/dL Calcium (8.4-10.2) mg/dL 05/21/19 05/21/19 05/21/19 Range/Units 07:49 07:49 12:14 WBC 15.0 H (3.8-10.6) k/uL Neutrophils # 13.6 H (1.3-7.7) k/uL Lymphocytes # 0.7 L (1.0-4.8) k/uL Sodium 131 L (137-145) mmol/L Chloride 94 L (98-107) mmol/L Carbon Dioxide 36 H (22-30) mmol/L BUN 28 H (7-17) mg/dL Glucose 124 H (74-99) mg/dL POC Glucose (mg/dL) 133 H (75-99) mg/dL Calcium 8.3 L (8.4-10.2) mg/dL Microbiology - Last 24 Hours (Table) 05/16/19 15:54 Blood Culture - Preliminary Blood No Growth after 96 hours Assessment and Plan Plan: 1 Abdominal discomfort secondary to nausea, vomiting and diarrhea. The patient's diarrhea has subsided. Patient has taken off antibiotics 2 Acute hypoxic respiratory failure secondary to a right lower lobe pneumonia per CT results at [facility] and the subsequent CAT scan of the abdomen and pelvis that was done yesterday showed some early cavitating lesion in the right lower lobe which is the same area where the pneumonia was. It seems that the patient is developing a cavitating pneumonia, consider gram-negative, consider anaerobes, consider aspiration. I'm a surprised by the rapid is developing cavitary change in the right lower lobe. This could be obviously a pneumonic findings. A follow-up CAT scan of the chest was done and showed a thin-walled cavitary change in the right lower lobe, probably a pneumatocele following infection. The patient was reassured. 3 Bibasilar consolidation/atelectasis, elevated right hemidiaphragm 4 Hypertension 5 Chronic diastolic congestive heart failure 6 Atherosclerotic heart disease 7 Sick sinus syndrome, status post permanent pacemaker implantation 8 History of CVA 9 Hyperlipidemia 10 Osteoarthritis 11 Anxiety 12 Gastroesophageal reflux disease 13 diarrhea, consider antibiotic induced. Plan This cavitating lesion has thin-walled, consider a postinfectious pneumatocele. No evidence of ongoing pneumonia is. Antibiotics have been stopped. Diarrhea is also subsided. Taper steroids and discharged the next 24-48 hours.
--- NOTE | 2019-05-21 17:05 | P.PN ---
Subjective Progress Note Date: 05/21/19 Principal diagnosis: Acute hypoxic respiratory failure secondary to cavitating pneumonia Abdominal pain 05/19/2019 seeing the patient for a follow-up. She has no respiratory difficulties. In fact most of the symptoms yesterday were related to GI symptoms that the patient was feeling nauseated. Based on that a CAT scan of the abdomen and pelvis was done and the CAT scan showed some a small tiny cavitating lesion in the right lower lobe. Note that when compared to the previous CAT scan of the chest that was done and [facility] on 05/12/2019, this is most likely an area of pneumonia that is somewhat cavitating at this point in time. She had a combination of Zosyn and Zithromax. No hemoptysis. No pleurisy. No nausea or vomiting. No other complaints otherwise for now. No reported aspiration. The white cell count is at 14.6. Rest of the blood work shows no significant abnormalities in renal function is been normal limits. 05/20/2019 Patient is seen and evaluated in room at bedside; patient denies any specific complaints Vital signs with a temperature of 97.1, pulse 88, respiration 20 and blood pressure 148/77 with SpO2 of 99 Lab review shows an elevated white blood count of 15.0 which has trended down from 18.7 upon admission; sodium 132 with potassium of 4.0, B UN/creatinine of 32/0.65; blood glucose ranges between 120-218 CT of the abdomen showed cavitating lesion in right lower lobe which was followed with dedicated CT of the chest; pulmonary service is following; Zithromax has been discontinued and patient remains on IV Zosyn 05/20/2019; 24-hour interval change Patient is seen and evaluated resting comfortably in bed; denies any further abdominal pain; CT of the chest was done which showed a thin wall cavitary lesion and right lower lobe adjacent to major fissure; pulmonary service is following and due to thin-abraham postinfectious pneumatocele is contemplated; malignancy seems to be less likely; patient is showing marked clinical improvement and remains on IV Zosyn; Zithromax has been discontinued Objective - Vital Signs Vital signs: Vital Signs Temp 97.5 F L 05/21/19 04:45 Pulse 80 05/21/19 07:42 Resp 20 05/21/19 04:45 BP 130/76 05/21/19 04:45 Pulse Ox 99 05/21/19 04:45 Intake & Output 05/20/19 05/21/19 05/21/19 18:59 06:59 18:59 Intake Total 300 Output Total 1 Balance 299 Weight 72.5 kg Intake: Oral 300 Output: Urine/Stool Mix 1 Other: Voiding Method Diaper Diaper Diaper Incontinent Incontinent Incontinent # Voids 2 2 # Bowel Movements 0 1 - Exam PHYSICAL EXAMINATION: GENERAL: The patient is alert and oriented x3, not in any acute distress. Well developed, well nourished. HEENT: Pupils are round and equally reacting to light. EOMI. No scleral icterus. No conjunctival pallor. Normocephalic, atraumatic. No pharyngeal erythema. No thyromegaly. CARDIOVASCULAR: S1 and S2 present. No murmurs, rubs, or gallops. PULMONARY: Chest is clear to auscultation, no wheezing or crackles. ABDOMEN: Soft, nontender, nondistended, normoactive bowel sounds. No palpable organomegaly. MUSCULOSKELETAL: No joint swelling or deformity. EXTREMITIES: No cyanosis, clubbing, or pedal edema. NEUROLOGICAL: Gross neurological examination did not reveal any focal deficits. SKIN: No rashes. - Labs CBC & Chem 7: 05/21/19 07:49 05/21/19 07:49 Labs: Abnormal Lab Results - Last 24 Hours (Table) 05/20/19 05/20/19 05/20/19 Range/Units 12:04 16:57 20:19 WBC (3.8-10.6) k/uL Neutrophils # (1.3-7.7) k/uL Lymphocytes # (1.0-4.8) k/uL Sodium (137-145) mmol/L Chloride (98-107) mmol/L Carbon Dioxide (22-30) mmol/L BUN (7-17) mg/dL Glucose (74-99) mg/dL POC Glucose (mg/dL) 155 H 145 H 218 H (75-99) mg/dL Calcium (8.4-10.2) mg/dL 05/21/19 05/21/19 05/21/19 Range/Units 06:52 07:49 07:49 WBC 15.0 H (3.8-10.6) k/uL Neutrophils # 13.6 H (1.3-7.7) k/uL Lymphocytes # 0.7 L (1.0-4.8) k/uL Sodium 131 L (137-145) mmol/L Chloride 94 L (98-107) mmol/L Carbon Dioxide 36 H (22-30) mmol/L BUN 28 H (7-17) mg/dL Glucose 124 H (74-99) mg/dL POC Glucose (mg/dL) 132 H (75-99) mg/dL Calcium 8.3 L (8.4-10.2) mg/dL Microbiology - Last 24 Hours (Table) 05/16/19 15:54 Blood Culture - Preliminary Blood No Growth after 96 hours Assessment and Plan Assessment: 1 Abdominal discomfort secondary to nausea, vomiting and diarrhea. The patien t's diarrhea has subsided. Nevertheless she is still having some nausea and vague abdominal discomfort and computed tomography scan of the abdomen and pelvis was within normal limits. 2 Acute hypoxic respiratory failure secondary to a right lower lobe pneumonia per CT results at [facility] and the subsequent CAT scan of the abdomen and pelvis that was done yesterday showed some early cavitating lesion in the right lower lobe which is the same area where the pneumonia was. It seems that the patient is developing a cavitating pneumonia, consider gram-negative, consider anaerobes, consider aspiration. 3 Bibasilar consolidation/atelectasis, elevated right hemidiaphragm 4 Hypertension 5 Chronic diastolic congestive heart failure 6 Atherosclerotic heart disease 7 Sick sinus syndrome, status post permanent pacemaker implantation 8 History of CVA 9 Hyperlipidemia 10 Osteoarthritis 11 Anxiety 12 Gastroesophageal reflux disease Plan This cavitating corneal lesion in the right lower lobe is unlikely to be malignancy. Based on the progression of the changes that are seen in the right lower lobe, this is most likely an infectious cause. Consider gram-negative. Consider anaerobes in the right lower lobe. Consider aspiration. Continued IV Zosyn. Discharge home on Augmentin to be having a follow-up CAT scan in 3-4 months time.
[2019-05-21 17:06] LABS: Glucose,Whole Blood 123 mg/dL (75-99)
[2019-05-21] MEDS: PANTOPRAZOLE 40 MG TABLET PO SCH (17:22)
[2019-05-21] MEDS ORDERED: methylPREDNISolone SOD SUCCI 40 MG/ML 1 ML VIAL IV SCH (21:00)
[2019-05-21] MEDS: SERTRALINE 50 MG TAB PO SCH (21:54)
[2019-05-21] MEDS: PRAVASTATIN SODIUM 40 MG TAB PO SCH (21:54)
[2019-05-21 22:21] LABS: Glucose,Whole Blood 109 mg/dL (75-99)
[2019-05-21 23:36] VITALS: RESP 17
[2019-05-22 05:58] VITALS: BP 155/80; TEMP 98.1
[2019-05-22 07:11] LABS: Glucose,Whole Blood 104 mg/dL (75-99)
--- NOTE | 2019-05-22 07:34 | P.DS ---
Providers Date of admission: 05/15/19 19:18 Attending physician: Franklin Velasco Consults: 05/16/19 00:02 Consult Physician Routine Consulting Provider: Alex Harman Consult Reason/Comments: pneomonia Do you want consulting provider notified?: Yes Primary care physician: Stated None Hospital Course: Diagnoses: Right lower lobe pneumonia with cavitary lesion suspicious for pneumatocele L per pulmonary evaluation, follow-up as an outpatient Gastroenteritis, improved Leukocytosis, multifactorial mostly reactive due to steroids. Also due to infection History of sick sinus syndrome status post pacemaker Chronic diastolic congestive heart failure Atherosclerotic heart disease History of CVA Hyperlipidemia Osteoarthritis History of anxiety, not an active issue Gastroesophageal reflux disease Hospital course: This is a pleasant 89 years old female with past medical history of GERD, anxiety, osteoarthritis, hyperlipidemia, CVA, atherosclerotic heart disease, chronic diastolic congestive heart failure, sick sinus syndrome status post pacemaker. Presents with signs symptoms of respiratory distress found to have right lower lobe pneumonia with cavitary lesion. Patient has been evaluated by production machine tender, most likely patient has pneumatocele , patient has been treated with antibiotics, steroids and she feels better. Her breathing is improved and she is back to baseline with no chest pain, with minimal cough on breathing treatments. Patient will be discharged on short course of oral Augmentin, with recommendation to repeat CAT scan of the chest in 3-4 weeks. Patient was cleared for discharge by pulmonary service No other new complaint Problems and management plan were discussed with the patient and he verbalized understanding and acceptance Patient was found stable and can be discharged home however he needs follow-up as an outpatient. Patient was instructed to follow up with PCP within one week and patient agrees. Also patient was instructed to follow up with a pulmonol ogist in 3-4 weeks Gen: patient is a AAOx3, no distress CVS: S1-S2, RRR, no murmur Lungs: B/L CTA, no wheezing Abdomen: soft, no distention, no tenderness, positive bowel sounds Extremity: no leg edema or induration Time spent more than 35 minutes Plan - Discharge Summary Discharge Rx Participant: No New Discharge Prescriptions: No Action traZODone HCL 50 mg PO HS PRN PRN Reason: Insomnia Losartan Potassium [Cozaar] 100 mg PO DAILY Fenofibrate 160 mg PO DAILY Clopidogrel [Plavix] 75 mg PO DAILY Pravastatin Sodium [Pravachol] 40 mg PO HS Omeprazole [PriLOSEC] 20 mg PO AC-BRKFST Isosorbide Mononitrate ER [Imdur] 60 mg PO DAILY Sertraline [Zoloft] 50 mg PO DAILY Naproxen 500 mg PO BID PRN PRN Reason: Pain Acetaminophen [Tylenol] 650 mg PO BID Cetirizine HCl [Zyrtec] 10 mg PO DAILY Naproxen 500 mg PO BID PRN PRN Reason: Pain Discharge Medication List Clopidogrel [Plavix] 75 mg PO DAILY 05/15/19 [History] Fenofibrate 160 mg PO DAILY 05/15/19 [History] Isosorbide Mononitrate ER [Imdur] 60 mg PO DAILY 05/15/19 [History] Losartan Potassium [Cozaar] 100 mg PO DAILY 05/15/19 [History] Naproxen 500 mg PO BID PRN 05/15/19 [History] Omeprazole [PriLOSEC] 20 mg PO AC-BRKFST 05/15/19 [History] Pravastatin Sodium [Pravachol] 40 mg PO HS 05/15/19 [History] Sertraline [Zoloft] 50 mg PO DAILY 05/15/19 [History] traZODone HCL 50 mg PO HS PRN 05/15/19 [History] Acetaminophen [Tylenol] 650 mg PO BID 05/16/19 [History] Cetirizine HCl [Zyrtec] 10 mg PO DAILY 05/16/19 [History] Naproxen 500 mg PO BID PRN 05/16/19 [History] Follow up Appointment(s)/Referral(s): [facility] [NON-STAFF] - Activity/Diet/Wound Care/Special Instructions: DC with Augmentin per Dr. Harman. recommending followup chest CT scan in 3-4 weeks.
[2019-05-22] MEDS: INSULIN ASPART (NovoLOG) 100 UNIT/ML VIAL SQ SCH (08:00)
[2019-05-22] MEDS: IPRATROPIUM-ALBUTEROL 3 ML NEB INHALATION SCH ×2 (08:03→11:43)
[2019-05-22] MEDS: BUDESONIDE 1 MG/2 ML NEBU INHALATION SCH (08:03)
[2019-05-22] MEDS: amLODIPine 5 MG TAB PO SCH (08:04)
[2019-05-22] MEDS: ISOSORBIDE MONONITRATE ER 60 MG TAB.ER.24H PO SCH (08:04)
[2019-05-22] MEDS: PANTOPRAZOLE 40 MG TABLET PO SCH (08:04)
[2019-05-22] MEDS: CLOPIDOGREL 75 MG TAB PO SCH (08:04)
[2019-05-22] MEDS: FENOFIBRATE 160 MG TAB PO SCH (08:04)
[2019-05-22] MEDS: SODIUM CHLORIDE 0.9% 1,000 ML IV SCH (08:04)
[2019-05-22] MEDS: HEPARIN SODIUM,PORCINE 5,000 UNIT/ML 1 ML VIAL SQ SCH (08:04)
[2019-05-22] MEDS: LOSARTAN 50 MG TAB PO SCH (08:04)
[2019-05-22] MEDS ORDERED: AMOXIC-POT CLAV 875-125MG 1 EACH TAB PO SCH (09:00)
[2019-05-22] MEDS ORDERED: FUROSEMIDE 40 MG TAB PO SCH (09:00)
[2019-05-22] MEDS ORDERED: predniSONE 10 MG TAB PO SCH (09:00)
[2019-05-22 09:05] VITALS: BMI 26.1
[2019-05-22 09:39] LABS: Basophils # (A) 0.1 k/uL (0-0.2); Basophils % (A) 1 %; Eosinophils # (A) 0.1 k/uL (0-0.7); Eosinophils % (A) 1 %; HGB 12.1 gm/dL (11.4-16.0); Lymphocytes # (A) 1.5 k/uL (1.0-4.8); Lymphocytes % (A) 10 %; MCH 27.2 pg (25.0-35.0); MCV 87.7 fL (80.0-100.0); Mean Platelet Volume 8.5; Monocytes # (A) 0.8 k/uL (0-1.0); Monocytes % (A) 5 %; Neutrophils # (A) 13.2 k/uL (1.3-7.7); Neutrophils % (A) 83 %; Platelet Count 178 k/uL (150-450); RBC 4.44 m/uL (3.80-5.40); RDW 13.6 % (11.5-15.5); WBC 15.9 k/uL (3.8-10.6)
[2019-05-22 09:47] LABS: African American GFR (CKD) >90 (>60 ml/min/1.73 sqM); Anion Gap 5 mmol/L; Blood Urea Nitrogen 29 mg/dL (7-17); Calcium 8.2 mg/dL (8.4-10.2); Carbon Dioxide 31 mmol/L (22-30); Chloride 95 mmol/L (98-107); Glucose 150 mg/dL (74-99); Non-African American GFR(CKD) 86 (>60 ml/min/1.73 sqM); Potassium 4.3 mmol/L (3.5-5.1); Sodium 131 mmol/L (137-145)
--- NOTE | 2019-05-22 11:08 | P.PN ---
Subjective Progress Note Date: 05/22/19 Principal diagnosis: Acute hypoxic respiratory failure secondary to right lower lobe pneumonia. This is a very pleasant 89-year-old female patient who is somewhat hard of hearing. She resides at [facility] in [place]. She follows with Dr. Webber as her primary care provider. She has a history of coronary artery disease, pulmonary embolism, hypertension, CVA, anxiety, GERD, congestive heart failure, dual-chamber permanent pacemaker implantation, she was treated with IV diuretics, ceftriaxone and azithromycin. osteoarthritis, hyperlipidemia she had initially presented to [facility] on 05/09/2019 with complaints of nausea vomiting and abdominal pain. She was found to have oxygen saturations in the 80s and was placed on nasal cannula. She was kept for observation for acute hypoxic respiratory failure, gastroenteritis. She had then developed suspicion for pneumonia and a CT angiogram of the chest showed a right lower lobe consolidation. She was slow to progress and subsequently transferred here 05/15/2019 to the general medical floor for further evaluation and treatment. Pro-calcitonin 0.08 within normal limits at [facility] labs. Lactic acid 1.0. No leukocytosis. ProBNP 3940. The patient is seen today in consultation on the regular medical floor. She is somewhat hard of hearing but answering questions appropriately. She denies any worsening shortness of breath, cough or congestion. She states previously she had yellow/green productive sputum. She did have a fever while at [facility]. Currently afebrile. Maintaining O2 s aturations in the low 90s on 2 L/m per nasal cannula. White count 13.2. Hemoglobin 13.0. Sodium 135. Creatinine 0.60. Bicarb 35. She is continued on bronchodilators, ceftriaxone and azithromycin, IV Solu-Medrol. Today's x-ray shows bibasilar consolidation/atelectasis. There is elevated right hemidiaphragm. The patient is seen today in 05/17/2019 in follow-up on the regular medical floor. She is currently up walking with assistance and physical therapy. She is awake and alert in no acute distress. She is breathing a bit easier today compared to yesterday. Still with some dyspnea on exertion. Maintaining good O2 saturations in the mid 90s on 2 L/m per nasal cannula. She is afebrile. Urine culture pending. White count 18.7. Hemoglobin 15.0. Sodium 134. Potassium 4.4. Bicarb 33. Creatinine 0.64. She is continued on Zosyn and azithromycin., Currently on IV Solu-Medrol bronchodilators and continued on IV diuretics. Chest x-ray shows bibasilar consolidation/atelectasis. On 05/18/2019 she has no respiratory difficulties. She is complaining of some vague diffuse abdominal pain and it's been going on for quite some time since admission initiated to [facility] and later on to [place]. She had some limited right lower lobe infiltration and elevation of right hemidiaphragm. She is on room air oxygen. He is on antibiotics with IV Zosyn and Zithromax.. She is going to have a CAT scan of the abdomen today. LFTs have been within normal including AST, ALT, alkaline phosphatase . Normal bilirubin. She did have some limited diarrhea earlier none for now. On 05/19/2019 I'm seeing the patient for a follow-up. She has no respiratory difficulties. In fact most of the symptoms yesterday were related to GI symptoms that the patient was feeling nauseated. Based on that a CAT scan of the abdomen and pelvis was done and the CAT scan showed some a small tiny cavitating lesion in the right lower lobe. Note that when compared to the previous CAT scan of the chest that was done and [facility] on 05/12/2019, this is most likely an area of pneumonia that is somewhat cavitating at this point in time. She had a combination of Zosyn and Zithromax. No hemoptysis. No pleurisy. No nausea or vomiting. No other complaints otherwise for now. No reported aspiration. The white cell count is at 14.6. Rest of the blood work shows no significant abnormalities in renal function is been normal limits. On 05/20/2019 the patient is having liquidy frequent bowel movements. I stopped the Zithromax yesterday. I am still having this patient on Zosyn. The CAT scan of the abdomen that showed some limited cavitating lesion in the right lower lobe which I suspect that it cavitating pneumonia. In any rate, the images was quite limited I'm going to repeat the CAT scan of the chest prior to making further decisions regarding antibiotic course and duration and the need for ongoing antibiotic treatment this patient. I will bit surprised that the mini ent Is sedated so early within few days following the original CAT scan of the chest. No nausea. No vomiting. No abdominal pain. She is hemodynamically stable. No altered mentation. She is on room air oxygen. On today's evaluation of 05/21/2019, the patient is feeling better. Diarrhea subsided. Repeat CAT scan of the chest was done and showed a thin-walled cavitary lesion right lower lobe adjacent to the major fissure. This is a thin- walled area and postinfectious pneumatocele is contemplated. Malignancy is felt to be less likely and the patient is feeling well. No major respiratory difficulties for now. I have taken this patient off the oxygen. The patient is seen today October in follow-up on the regular medical floor. She is sitting up in bed. Awake and alert in no acute distress. Denies any worsening shortness of breath, cough or congestion. Afebrile. He modynamically stable. Blood and urine cultures reveal no growth. White count 15.9. Hemoglobin 12.1. Sodium 131. Creatinine 0.52. She is continued on DuoNeb inhalations, Pulmicort inhalations, prednisone. Objective - Vital Signs Vital signs: Vital Signs Temp 98.1 F 05/22/19 05:41 Pulse 84 05/22/19 08:20 Resp 17 05/22/19 05:41 BP 155/80 05/22/19 05:41 Pulse Ox 98 05/22/19 08:06 Intake & Output 05/21/19 05/22/19 05/22/19 18:59 06:59 18:59 Intake Total 400 Output Total 900 Balance 400 -900 Weight 71.1 kg 71.1 kg Intake: Intake, IV Titration 400 Amount Sodium Chloride 0.9% 1, 400 000 ml @ 50 mls/hr IV . Q20H [facility] Rx#:[id number] Output: Urine 900 Other: Voiding Method Diaper Diaper Diaper Incontinent Incontinent Incontinent # Voids 2 1 4 # Bowel Movements 1 0 1 - Exam GENERAL EXAM: Alert, hard of hearing, pleasant 89-year-old female patient, on room air, comfortable in no apparent distress. HEAD: Normocephalic. EYES: Normal reaction of pupils, equal size. NOSE: Clear with pink turbinates. THROAT: No erythema or exudates. NECK: No masses, no JVD. CHEST: No chest wall deformity. LUNGS: Equal air entry with few crackles in the posterior bases. CVS: S1 and S2 normal with no audible murmur, regular rhythm. ABDOMEN: No hepatosplenomegaly, normal bowel sounds, no guarding or rigidity. SPINE: No scoliosis or deformity SKIN: No rashes CENTRAL NERVOUS SYSTEM: No focal deficits, tone is normal in all 4 extremities. EXTREMITIES: There is no peripheral edema. No clubbing, no cyanosis. Peripheral pulses are intact. - Labs CBC & Chem 7: 05/22/19 09:06 05/22/19 09:06 Labs: Abnormal Lab Results - Last 24 Hours (Table) 05/21/19 05/21/19 05/21/19 Range/Units 12:14 17:02 22:19 WBC (3.8-10.6) k/uL Neutrophils # (1.3-7.7) k/uL Sodium (137-145) mmol/L Chloride (98-107) mmol/L Carbon Dioxide (22-30) mmol/L BUN (7-17) mg/dL Glucose (74-99) mg/dL POC Glucose (mg/dL) 133 H 123 H 109 H (75-99) mg/dL Calcium (8.4-10.2) mg/dL 05/22/19 05/22/19 05/22/19 Range/Units 07:00 09:06 09:06 WBC 15.9 H (3.8-10.6) k/uL Neutrophils # 13.2 H (1.3-7.7) k/uL Sodium 131 L (137-145) mmol/L Chloride 95 L (98-107) mmol/L Carbon Dioxide 31 H (22-30) mmol/L BUN 29 H (7-17) mg/dL Glucose 150 H (74-99) mg/dL POC Glucose (mg/dL) 104 H (75-99) mg/dL Calcium 8.2 L (8.4-10.2) mg/dL Microbiology - Last 24 Hours (Table) 05/16/19 15:54 Blood Culture - Preliminary Blood No Growth after 120 hours Assessment and Plan Assessment: 1 Abdominal discomfort secondary to nausea, vomiting and diarrhea. Diarrhea have subsided. Patient off antibiotics. 2 Acute hypoxic respiratory failure secondary to a right lower lobe pneumonia per CT results at [facility] and the subsequent CAT scan of the abdomen and pelvis that was done showed some early cavitating lesion in the right lower lobe which is the same area where the pneumonia was. It seems that the patient is developing a cavitating pneumonia, consider gram-negative, consider anaerobes, consider aspiration. Surprised by the rapid development of the cavitary change in the right lower lobe. This could be obviously a pneumonic findings. A follow-up CAT scan of the chest was done and showed a thin-walled cavitary change in the right lower lobe, probably a pneumatocele following infection. The patient was reassured. 3 Bibasilar consolidation/atelectasis, elevated right hemidiaphragm 4 Hypertension 5 Chronic diastolic congestive heart failure 6 Atherosclerotic heart disease 7 Sick sinus syndrome, status post permanent pacemaker implantation 8 History of CVA 9 Hyperlipidemia 10 Osteoarthritis 11 Anxiety 12 Gastroesophageal reflux disease Plan: The patient was seen and evaluated by Dr. Cárdenas. She is stable from the pu lmonary standpoint. We will see him on as-needed basis. I, the cosigning physician, performed a history & physical examination of the patient. Lungs sounds crackles in the posterior bases. Maintaining good O2 saturations in the 90s on room air. I discussed the assessment and plan of care with my nurse practitioner, Mague Goyal. I attest to the above note as dictated by her.
[2019-05-22 11:45] VITALS: PULSE 92
== END 2019-05-22 13:46 | DRG 177 ==
LOC: 6NMEDSUR 19:18
PROVIDERS: ADMIT Internal Medicine; ATTEND Internal Medicine
DX: J15.6 Pneumonia due to other Gram-negative bacteria (principal); J96.01 Acute respiratory failure with hypoxia; I50.32 Chronic diastolic (congestive) heart failure; E87.1 Hypo-osmolality and hyponatremia; J98.11 Atelectasis; K52.1 Toxic gastroenteritis and colitis; E78.5 Hyperlipidemia, unspecified; J15.8 Pneumonia due to other specified bacteria; J69.0 Pneumonitis due to inhalation of food and vomit; Z66 Do not resuscitate; E87.6 Hypokalemia; F41.9 Anxiety disorder, unspecified; I25.10 Atherosclerotic heart disease of native coronary artery without angina pectoris; I49.5 Sick sinus syndrome; J98.4 Other disorders of lung; I11.0 Hypertensive heart disease with heart failure; J30.9 Allergic rhinitis, unspecified; K21.9 Gastro-esophageal reflux disease without esophagitis; M19.90 Unspecified osteoarthritis, unspecified site; Z79.02 Long term (current) use of antithrombotics/antiplatelets; Z79.899 Other long term (current) drug therapy; Z83.3 Family history of diabetes mellitus; Z86.711 Personal history of pulmonary embolism; Z86.73 Personal history of transient ischemic attack (TIA), and cerebral infarction without residual deficits; Z95.0 Presence of cardiac pacemaker; Z90.710 Acquired absence of both cervix and uterus; Z87.01 Personal history of pneumonia (recurrent); Z88.1 Allergy status to other antibiotic agents; Z91.013 Allergy to seafood; Z98.890 Other specified postprocedural states
CPT/HCPCS: 71045; 71250; 74177; 80048; 80053; 81003; 83880; 85025; 87040; 87086; 87502; 93306; 94640; 94760